=== PATIENT | male | born 1965 | race Caucasian/White ===

== ENCOUNTER → 2017-12-29 | Outpatient (CLI) | payer MEDICARE ==
--- NOTE | 2017-12-29 15:51 | Diagnostic Imaging Report ---
INDICATION: Left elbow pain. TIME OF EXAM: 02:42 p.m. Three views of left elbow are obtained. There is osseous density noted along the volar aspect of the elbow. This is adjacent to the olecranon on AP view. Findings are suggestive of an acute fracture, possibly arising from the coronoid process. Proximal radius is intact. Distal humerus is intact. IMPRESSION: Findings are suggestive of a fracture at the elbow, likely arising from the coronoid process. Dictated by: Dictated on workstation # [id number]
--- NOTE | 2017-12-29 15:54 | Diagnostic Imaging Report ---
INDICATION: Left arm pain. TIME OF EXAM: 2:45 PM FINDINGS: Two views of left forearm demonstrate an osseous density in the anterior elbow consistent with a fracture fragment. This likely arises from the coronoid process. Alignment at the elbow is normal. Alignment at the wrist is normal. No other abnormalities are seen. IMPRESSION: Elbow fracture, possibly arising from the coronoid process. Dictated by: Dictated on workstation # [id number]
== END ==
LOC: RAD 14:02
PROVIDERS: ATTEND Family Medicine
DX: S42.402A Unspecified fracture of lower end of left humerus, initial encounter for closed fracture (principal)
CPT/HCPCS: 73080; 73090

== ENCOUNTER → 2018-01-13 | Outpatient (CLI) | payer MEDICARE ==
--- NOTE | 2018-01-13 15:38 | Diagnostic Imaging Report ---
INDICATION: 52-year-old male with recent elbow fracture. COMPARISON: None. FINDINGS: AP Spine L1-L4: [BMD (g/cm2): 1.202] [T-Score: -0.3] [Z-Score: 0.1] [BMD Previous: N/A] [BMD % Change: N/A] LT Hip Neck: [BMD (g/cm2): 0.899] [T-Score: -1.3] [Z-Score: -0.5] LT Hip Total: [BMD (g/cm2):.893] [T-Score:-1.4] [Z-Score: -1.0] [BMD Previous: N/A] [BMD % Change: N/A] RT Hip Neck: [BMD (g/cm2):.850] [T-Score:-1.7] [Z-Score:-0.9] RT Hip Total: [BMD (g/cm2):0.891] [T-score:-1.5] [Z-Score:-1.0] [BMD Previous:N/A] [BMD % Change:N/A] *Indicates significant change from prior examination based on 95% confidence level. World Health Organization criteria for BMD interpretation classify patients as Normal (T-score at or above -1.0), Osteopenic (T-score between -1.0 and -2.5) or Osteoporotic (T-score at or below -2.5). LIMITATIONS AND MODIFICATION: None. FRACTURE RISK (FRAX SCORE): The ten year probability of (%): Major Osteoporotic Fracture: [9.4] Hip Fracture: [1.3] IMPRESSION: 1. Osteopenia (Low bone mass). 2. Baseline examination. 3. See below National Osteoporosis Foundation guidelines on when to potentially initiate pharmacologic therapy. Based on the National Osteoporosis Foundation Guidelines, pharmacologic treatment should be initiated in any of the following, unless clinical conditions suggest otherwise: * Any patient with prior fragility fracture of the hip or vertebrae. A spine fracture indicates 5X risk for subsequent spine fracture and 2X risk for subsequent hip fracture. * Osteoporosis (T-score <-2.5). * Postmenopausal women and men age 50 and older with low bone mass/osteopenia (T-score between -1.0 and -2.5) by DXA and 10-year major osteoporotic fracture greater than 20% or a 10-year probability of hip fracture greater than 3%. These fracture risks are supplied above in the FRAX score, if applicable. * Clinician judgement and/or patient preferences may indicate treatment for people with 10-year fracture probabilities above or below these levels. Dictated by: Dictated on workstation # [id number]
== END ==
LOC: RAD 10:44
PROVIDERS: ATTEND Family Medicine
DX: S42.409A Unspecified fracture of lower end of unspecified humerus, initial encounter for closed fracture (principal); M85.89 Other specified disorders of bone density and structure, multiple sites
CPT/HCPCS: 77080

== ENCOUNTER 2018-03-02 08:59 | Emergency (ER) | payer MEDICARE ==
[~2018-03-02] VITALS: Ht 157.5 cm; Wt 59.0 kg
--- NOTE | 2018-03-02 10:07 | Diagnostic Imaging Report ---
PROCEDURE: CT head and CT cervical spine without contrast. TECHNIQUE: Multiple contiguous axial images were obtained through the brain and cervical spine without the use of intravenous contrast. Sagittal and coronal reformations through the cervical spine were then performed. INDICATION: Fall. Head injury. COMPARISON: None. FINDINGS: CT HEAD: Moderate generalized cerebral and cerebellar parenchymal volume loss. No CT evidence for territorial infarction. No intracranial hemorrhage, mass effect, hydrocephalus, or extra-axial fluid collections. Osseous structures are intact. Moderate mucosal thickening in the ethmoid and right maxillary sinuses. The mastoids are clear. CT CERVICAL SPINE: Normal alignment. Vertebral body heights are preserved. No fractures. Moderate to advanced degenerative endplate changes at C5-C7. No evidence of high-grade spinal canal narrowing. There is moderate to advanced bilateral neuroforaminal narrowing at C5-C6 and C6-C7. The visualized paravertebral soft tissues are unremarkable. IMPRESSION: No acute intracranial or cervical spine CT findings. Dictated by: Dictated on workstation # [id number]
--- NOTE | 2018-03-02 10:33 | ED Fall/Injury ---
General Chief Complaint: Trauma-Non Activation Stated Complaint: FALL Nursing Triage Note: pt presents to ed via ems from [facility] [place] [facility] for fall this am while walking to breakfast. pt had a witnessed fall forward onto his face. pt has 1-1 1/2 cm lac to forehead. no loc. Source: patient Exam Limitations: physical impairment (ANGELINA ROBLERO MD) History of Present Illness Date Seen by Provider: Mar 02, 2018 Time Seen by Provider: 10:02 Initial Comments Here with report of fall while trying to walk to breakfast this morning. Witnessed fall due to losing his balance and fell forward and hit his face. No loss of consciousness. Return to walk afterwards. Patient has dementia and behavioral disorder and does not converse well but does follow some commands. Does have a 2 cm laceration to the forehead up above the nose. Bleeding controlled with dressing. No other injury noted or reported. [facility] Location Injury Occurred: home residence Occurred: this morning (approximately 45 minutes prior to arrival) Severity: moderate Injuries/Pain Location: head, face Context: lost balance Loss of Consciousness: no loss of consciousness Associated Symptoms (Fall): No Nausea/Vomiting (ANGELINA ROBLERO MD) Allergies and Home Medications Allergies Coded Allergies: No Known Drug Allergies (Unverified , 03/02/18) Home Medications Calcium Carbonate/Simethicone 1 Each Tab.chew, 1 TAB PO QID PRN for INDIGESTION, (Reported) Docusate Sodium 100 Mg Capsule, 100 MG PO DAILY, (Reported) Patient Home Medication List Home Medication List Reviewed: Yes (ANGELINA ROBLERO MD) Review of Systems Review of Systems Constitutional: see HPI; No chills, No fever Gastrointestinal: No diarrhea, No vomiting Skin: change in color, lesions Unable to complete review of systems due to her underlying dementia and medical condition (ANGELINA ROBLERO MD) Past Pishxjq-Hfrrmm-Vsffbq Hx Past Med/Social Hx: Reviewed Nursing Past Med/Soc Hx (ANGELINA ROBLERO MD) Patient Social History Alcohol Use: Denies Use Recreational Drug Use: No Smoking Status: Never a Smoker Recent Foreign Travel: No Contact w/Someone Who Travel: No Recent Infectious Disease Expo: No (ANGELINA ROBLERO MD) Past Medical History Cardiac: Yes High Cholesterol, Hypertension Neurological: Yes (anoxic brain damage) Dementia Genitourinary: No Gastrointestinal: Yes Chronic Constipation Musculoskeletal: Yes (lack of cordination) Endocrine: Yes Diabetes, Non-Insulin dep HEENT: Yes Dysphagia Cancer: No Psychosocial: Yes (behavioral disorders, ) Sleep Difficulties, Depression (ANGELINA ROBLERO MD) Family Medical History Reviewed Nursing Family Hx (ANGELINA ROBLERO MD) History per records as patient unable to give history. (ANGELINA ROBLERO MD) Physical Exam Vital Signs Vital Signs - First Documented 03/02/18 09:10 Temp 97.4 Pulse 71 Resp 16 B/P (MAP) 101/81 (88) Pulse Ox 91 (BARBARA MCCABE APRN) Vital Signs Capillary Refill : Less Than 3 Seconds (ANGELINA ROBLERO MD) Height, Weight, BMI Height: 5'2.00" Weight: 130lbs. oz. 58.039475dp; BMI Method:Estimated General Appearance: WD/WN, no apparent distress HEENT: PERRL/EOMI, TMs normal, pharynx normal Neck: full range of motion, supple Cardiovascular: regular rate, rhythm, no murmur Respiratory: lungs clear, normal breath sounds Gastrointestinal: non tender, soft Back: normal inspection, no CVA tenderness, no vertebral tenderness Extremities: normal range of motion, non-tender, normal inspection Neurologic/Psychiatric: alert, other (baseline mood and affect) Skin: warm/dry, other (2 centimeter laceration to the forehead centrally oblique over left eye and nose) (ANGELINA ROBLERO MD) Procedures/Interventions Wound Location: Face Wound Length (cm): 3.5 Wound's Depth, Shape: linear, sub Q Wound Explored: clean Irrigated w/ Saline (ccs): 20 Anesthesia: 1% Lidocaine Volume Anesthetic (ccs): 3 Suture: Prolene Suture Size: 5-0 Number of Sutures: 9 Layer Closure?: 1 Number Deep Layer Sutures: 0 Progress Area anesthetized with 3 mL of 1% lidocaine without epinephrine. Wound then scrubbed with clinically/saline solution. Wound then irrigated with 20 mL the same. There is a 3 cm laceration between the eyebrows and a 0.5 cm stellate laceration to the bridge of the nose. The 3 cm laceration was closed with 7 simple a ruptured sutures size 5-0 Prolene. The stellate laceration on the nose closed with 2 simple interrupted sutures size 5-0 Prolene. (BARBARA MCCABE APRN) Progress/Results/Core Measures Results/Orders Vital Signs/I&O 03/02/18 03/02/18 09:10 11:18 Temp 97.4 Pulse 71 65 Resp 16 18 B/P (MAP) 101/81 (88) 114/81 (92) Pulse Ox 91 94 (BARBARA MCCABE APRN) Blood Pressure Mean: 88 Progress Progress Note : Progress Note Seen and evaluated. CT head and neck ordered. Dressing applied to wound for bleeding control. Monitor patient. 1149: Wound repaired by Barbara Mccabe APRN. Discharged home with return precautions. Staff verbalize understanding of instructions and agreement with plan. (ANGELINA ROBLERO MD) Diagnostic Imaging Diagonstic Imaging: CT Plain Films/CT/US/NM/MRI: c-spine, head Comments [facility] [place] NAME: LAURITA ORTIZ [employer] REC#: [id number] PT STATUS: REG ER : 1965 PHYSICIAN: ANGELINA ROBLERO MD ADMIT DATE: 03/02/18/ER Draft Date of Exam:03/02/18 CT HEAD/CERVICAL SPINE WO PROCEDURE: CT head and CT cervical spine without contrast. TECHNIQUE: Multiple contiguous axial images were obtained through the brain and cervical spine without the use of intravenous contrast. Sagittal and coronal reformations through the cervical spine were then performed. INDICATION: Fall. Head injury. COMPARISON: None. FINDINGS: CT HEAD: Moderate generalized cerebral and cerebellar parenchymal volume loss. No CT evidence for territorial infarction. No intracranial hemorrhage, mass effect, hydrocephalus, or extra-axial fluid collections. Osseous structures are intact. Moderate mucosal thickening in the ethmoid and right maxillary sinuses. The mastoids are clear. CT CERVICAL SPINE: Normal alignment. Vertebral body heights are preserved. No fractures. Moderate to advanced degenerative endplate changes at C5-C7. No evidence of high-grade spinal canal narrowing. There is moderate to advanced bilateral neuroforaminal narrowing at C5-C6 and C6-C7. The visualized paravertebral soft tissues are unremarkable. IMPRESSION: No acute intracranial or cervical spine CT findings. Dictated on workstation # [id number] Dict: 03/02/18 1000 Trans: 03/02/18 1007 [id number] Interpreted by: ADRIA PULIDO MD Electronically signed by: (ANGELINA ROBLERO MD) Departure Impression Primary Impression: Forehead laceration Qualified Codes: S01.81XA - Laceration without foreign body of other part of head, initial encounter Additional Impression: Head injury Qualified Codes: S09.90XA - Unspecified injury of head, initial encounter Disposition: HOME, SELF-CARE Condition: Improved Departure-Patient Inst. Decision time for Depature: 11:50 (ANGELINA ROBLERO MD) Referrals: GONZALES YANG DO (PCP/Family) Primary Care Physician Patient Instructions: Laceration Repair With Stitches (DC), Minor Head Injury ( DC) Add. Discharge Instructions: All discharge instructions reviewed with patient and/or family. Voiced understanding. Sutures out in 7 days. Follow-up with your Dr. in a few days for recheck as needed. Return for worsening, fever, vomiting, weakness, breathing problems or other concerns as needed. You may cover wound with antibiotic ointment and dressing once or twice daily as needed. You can continue this for 3 or 4 days and then cover with dry dressing afterwards. ANGELINA ROBLERO MD Mar 02, 2018 10:33 BARBARA MCCABE APRN Mar 02, 2018 11:45
[2018-03-02] MEDS ORDERED: ATOR20TA49 PO (10:59)
[2018-03-02] MEDS ORDERED: CALC1TAB24 PO (10:59)
[2018-03-02] MEDS ORDERED: ESCI5TAB PO (10:59)
[2018-03-02] MEDS ORDERED: DONE23TA PO (10:59)
[2018-03-02] MEDS ORDERED: CALC-140 PO (10:59)
[2018-03-02] MEDS ORDERED: GUAI400T71 PO (10:59)
[2018-03-02] MEDS ORDERED: DOCU-143 PO (10:59)
[2018-03-02] MEDS ORDERED: ZOLP5TAB PO (10:59)
[2018-03-02 12:13] VITALS: BP 114/81
== END 2018-03-02 12:13 | disposition home or self-care (01) ==
LOC: EDUNIT# 08:59 → ER 09:00
DX: S09.90XA Unspecified injury of head, initial encounter (principal); S01.81XA Laceration without foreign body of other part of head, initial encounter; E78.00 Pure hypercholesterolemia, unspecified; I10 Essential (primary) hypertension; F03.90 Unspecified dementia, unspecified severity, without behavioral disturbance, psychotic disturbance, mood disturbance, and anxiety; F32.9 Major depressive disorder, single episode, unspecified; Z87.19 Personal history of other diseases of the digestive system; W01.198A Fall on same level from slipping, tripping and stumbling with subsequent striking against other object, initial encounter; Y92.009 Unspecified place in unspecified non-institutional (private) residence as the place of occurrence of the external cause
CPT/HCPCS: 12013; 70450; 72125

== ENCOUNTER 2018-10-06 19:08 | Inpatient (IN) | payer MEDICARE ==
[~2018-10-06] VITALS: Ht 182.9 cm; Wt 72.8 kg
[~2018-10-06 19:08] MED LIST: ATOR20TA49 PO; CALC-140 PO; CALC1TAB24 PO; DOCU-143 PO; DONE23TA PO; ESCI5TAB PO; GUAI400T71 PO; ZOLP5TAB PO
[2018-10-06 19:10] VITALS: BP 121/73
[2018-10-06] MEDS ORDERED: NS IV 1000 ML 1,000 ML IV SCH (19:17)
[2018-10-06] MEDS ORDERED: NS IV 500 ML 500 ML IV ONE (19:17)
--- NOTE | 2018-10-06 19:26 | ED General ---
General Stated Complaint: ALTERED MENTAL STATUS Source of Information: Patient, EMS, Long-Term Records Exam Limitations: Other (advanced Alzheimer's dementia) History of Present Illness Date Seen by Provider: Oct 06, 2018 Time Seen by Provider: 19:09 Initial Comments The patient arrives by EMS from [facility] with chief complaint that he knows he was having a difficult time breathing some coughing and a fever but no mention of antipyretics this afternoon. He spent most of the day lying in bed which was unusual for him. He is nonverbal at baseline. Has a history of dementia secondary to Alzheimer's and no history of diabetes. He had sugar was 232 per EMS when they arrived. He was 89% on room air so they got him up to 94% with 3 L of oxygen by nasal cannula. He is not oxygen dependent at baseline. No mention of history of COPD or asthma. Allergies and Home Medications Allergies Coded Allergies: No Known Drug Allergies (Unverified , 03/02/18) Home Medications Calcium Carbonate/Simethicone 1 Each Tab.chew, 1 TAB PO QID PRN for INDIGESTION, (Reported) Docusate Sodium 100 Mg Capsule, 100 MG PO DAILY, (Reported) Patient Home Medication List Home Medication List Reviewed: Yes Review of Systems Review of Systems Constitutional: No chills; fever, malaise EENTM: No ear discharge, No hearing loss, No ear pain Respiratory: cough, short of breath; No wheezing Cardiovascular: No chest pain, No Hx of Intervention, No palpitations Gastrointestinal: No abdominal pain, No constipation, No diarrhea Genitourinary: No discharge, No dysuria Musculoskeletal: No back pain, No joint pain Skin: pruritus, rash Past Ytpafry-Yqgwsq-Noxrhv Hx Patient Social History Alcohol Use: Denies Use Recreational Drug Use: No Recent Foreign Travel: No Contact w/Someone Who Travel: No Past Medical History Cardiac: Yes High Cholesterol, Hypertension Neurological: Yes (anoxic brain damage) Dementia Genitourinary: No Gastrointestinal: Yes Chronic Constipation Musculoskeletal: Yes (lack of cordination) Endocrine: Yes Diabetes, Non-Insulin dep HEENT: Yes Dysphagia Cancer: No Psychosocial: Yes (behavioral disorders, ) Sleep Difficulties, Depression Family Medical History History per records as patient unable to give history. Physical Exam-Suspected Sepsis Physical Exam Vital Signs Capillary Refill : Height, Weight, BMI Height: 5'2.00" Weight: 130lbs. oz. 58.079312gq; BMI Method:Estimated General Appearance: No Apparent Distress, WD/WN Eyes: Bilateral Eye Normal Inspection, Bilateral Eye PERRL, Bilateral Eye EOMI HEENT: PERRL/EOMI, TMs Normal, Pharynx Normal; No Moist Mucous Membranes Neck: Full Range of Motion, Normal Inspection Respiratory: No Accessory Muscle Use, Respiratory Distress (mild with respiratory rate in the mid 20s and hypoxia on room air), Rhonci (right big) Cardiovascular: Regular Rate, Rhythm, No Edema, Normal Peripheral Pulses Gastrointestinal: Normal Bowel Sounds, Non Tender, Soft Back: Normal Inspection, No Vertebral Tenderness Extremity: Normal Capillary Refill, Normal Inspection, No Pedal Edema Neurologic/Psychiatric: Alert, Normal Mood/Affect (cooperative), Other ( nonverbal) Skin: rash (erythematous papules that are pruritic and consistent with scabies) Focused Exam Sepsis Stage: Sepsis Possible Source: Pulmonary Lactate Level 10/06/18 19:16: Lactic Acid Level 1.68 Time of Focused Exam: 20:12 Respiratory: No Accessory Muscle Use, Respiratory Distress (respiratory rate in the low 20s and oxygen saturation 90% on room air before mid to upper 90s on 3 L.), Rhonci Cardiovascular: Regular Rate, Rhythm (120), No Edema, No JVD, Normal Peripheral Pulses Capillary Refill: Less Than 3 Seconds Peripheral Pulses: 2+ Dorsalis Pedis (R), 2+ Left Dors-Pedis (L) Skin: normal color, rash Lactic Acid Level Laboratory Tests Test 10/06/18 19:16 Lactic Acid Level 1.68 MMOL/L (0.50-2.00) Within 3hrs of presentation: Admin fluids, Admin ABX, Blood cultures prior to ABX's, Focus exam, Lactate level Procedures/Interventions Suture Size: 5-0 Progress/Results/Core Measures Suspected Sepsis SIRS Temperature: Pulse: Respiratory Rate: Laboratory Tests 10/06/18 19:16: White Blood Count 16.3H Blood Pressure / Mean: 10/06/18 19:16: Lactic Acid Level 1.68 Laboratory Tests 10/06/18 19:16: Creatinine 1.02, INR Comment 1.1, Platelet Count 143, Total Bilirubin 1.0 Results/Orders Lab Results Laboratory Tests Test 10/06/18 19:16 10/06/18 19:55 Range/Units White Blood Count 16.3 H 4.3-11.0 10^3/uL Red Blood Count 4.92 4.35-5.85 10^6/uL Hemoglobin 14.8 13.3-17.7 G/DL Hematocrit 46 40-54 % Mean Corpuscular Volume 93 80-99 FL Mean Corpuscular Hemoglobin 30 25-34 PG Mean Corpuscular Hemoglobin Concent 32 32-36 G/DL Red Cell Distribution Width 14.3 10.0-14.5 % Platelet Count 143 130-400 10^3/uL Mean Platelet Volume 10.9 H 7.4-10.4 FL Neutrophils (%) (Auto) 78 H 42-75 % Lymphocytes (%) (Auto) 9 L 12-44 % Monocytes (%) (Auto) 13 H 0-12 % Eosinophils (%) (Auto) 0 0-10 % Basophils (%) (Auto) 0 0-10 % Neutrophils # (Auto) 12.7 H 1.8-7.8 X 10^3 Lymphocytes # (Auto) 1.4 1.0-4.0 X 10^3 Monocytes # (Auto) 2.2 H 0.0-1.0 X 10^3 Eosinophils # (Auto) 0.0 0.0-0.3 10^3/uL Basophils # (Auto) 0.0 0.0-0.1 10^3/uL Neutrophils % (Manual) 6 % Lymphocytes % (Manual) 17 % Band Neutrophils 7 % Blood Morphology Comment NORMAL Prothrombin Time 14.7 12.2-14.7 SEC INR Comment 1.1 0.8-1.4 Activated Partial Thromboplast Time 30 24-35 SEC Sodium Level 137 135-145 MMOL/L Potassium Level 3.9 3.6-5.0 MMOL/L Chloride Level 102 98-107 MMOL/L Carbon Dioxide Level 23 21-32 MMOL/L Anion Gap 12 5-14 MMOL/L Blood Urea Nitrogen 15 7-18 MG/DL Creatinine 1.02 0.60-1.30 MG/DL Estimat Glomerular Filtration Rate > 60 BUN/Creatinine Ratio 15 Glucose Level 265 H 70-105 MG/DL Lactic Acid Level 1.68 0.50-2.00 MMOL/L Calcium Level 9.2 8.5-10.1 MG/DL Corrected Calcium 9.3 8.5-10.1 MG/DL Total Bilirubin 1.0 0.1-1.0 MG/DL Aspartate Amino Transf (AST/SGOT) 10 5-34 U/L Alanine Aminotransferase (ALT/SGPT) 13 0-55 U/L Alkaline Phosphatase 113 40-136 U/L Total Protein 7.1 6.4-8.2 GM/DL Albumin 3.9 3.2-4.5 GM/DL Smear Scan 70 My Orders Orders - ROSCOE HUBER J Cbc With Automated Diff (10/06/18:) Comprehensive Metabolic Panel (10/06/18:) Blood Culture (10/06/18:) Sputum Culture (10/06/18:) Urinalysis (10/06/18) Urine Culture (10/06/18) Protime With Inr (10/06/18:) Partial Thromboplastin Time (10/06/18:) Chest 1 View, Ap/Pa Only (10/06/18:) Acetaminophen Tablet (Tylenol Tablet) (10/06/18:30) Ed Iv/Invasive Line Start (10/06/18:17) Ed Iv/Invasive Line Start (10/06/18:17) Vital Signs Adult Sepsis Patie Q15M (10/06/18:17) O2 (10/06/18:) Remove Rings In Anticipation O (10/06/18:17) Lactic Acid Analyzer (10/06/18:17) Ns Iv 1000 Ml (Sodium Chloride 0.9%) (10/06/18:) Cefepime Injection (Maxipime Injection) (10/06/18:30) Ed Iv/Invasive Line Start (10/06/18:) Ns Iv 500 Ml (Sodium Chloride 0.9%) (10/06/18:17) Albuterol/Ipra Inhalation Soln (Duoneb I (10/06/18:30) Svn Small Volume Nebulizer (10/06/18:17) Manual Differential (10/06/18 19:16) Arterial Blood Gas (10/06/18 19:53) Medications Given in ED Current Medications Medications Dose Ordered Sig/Willie Route Start Time Stop Time Status Last Admin Dose Admin Acetaminophen 1,000 mg ONCE PRN PO 10/06/18 19:30 10/06/18 19:33 DC 10/06/18 19:32 1,000 MG Cefepime HCl 1000 mg/Sterile Water 10 ml @ 200 mls/hr ONCE ONCE IV 10/06/18 19:30 10/06/18 19:32 DC 10/06/18 19:57 200 MLS/HR Sodium Chloride 500 ml @ 0 mls/hr Q0M ONCE IV 10/06/18 19:17 10/06/18 19:22 DC 10/06/18 19:32 0 MLS/HR Vital Signs/I&O Capillary Refill : Progress Note : Time: 19:24 Progress Note ABG, oxygen at 2 L and the patient stays in the mid 90s on his oxygen sats, septic workup to include a 1500 mL bolus which is more than 20 cc/kg. He is tachycardic with a fever 102.1 so we'll give him Tylenol and obtain chest x-ray. He has some right lung rhonchi so we will try a breathing treatment. Diagnostic Imaging Diagonstic Imaging: Xray Plain Films/CT/US/NM/MRI: chest (1v) Comments NAME: LAURITA ORTIZ [facility] REC#: [id number] PT STATUS: REG ER : 1965 PHYSICIAN: ROSCOE HUBER MD ADMIT DATE: 10/06/18/ER Draft Date of Exam:10/06/18 CHEST 1 VIEW, AP/PA ONLY EXAMINATION: Portable erect AP chest at 07:46 p.m. INDICATION: Fever. FINDINGS: There are no prior studies available for comparison. This exam is less than optimal as the study is taken in shallow inspiration. Allowing for this technical factor, the heart size is within normal limits. There is bibasilar pneumonia/atelectasis. There may also be a small amount of fluid in the right lung base. The upper lungs are generally clear. The mediastinum is not widened. The osseous structures are intact. IMPRESSION: There is bibasilar pneumonia/atelectasis and a small right pleural effusion. A follow-up exam will be recommended for further evaluation. Dictated on workstation # [id number] Dict: 10/06/181953 Trans: 10/06/181957 [id number] Interpreted by: MOISES GONCALVES MD Electronically signed by: Reviewed: Reviewed by Me Departure Communication (Admissions) Time/Spoke to Admitting Phy: 20:[address] Reza [place] who is covering for Dr. Yang and he agrees to admit the patient and return patient to Dr. Yang in the morning. Impression Primary Impression: Pneumonia Qualified Codes: J18.1 - Lobar pneumonia, unspecified organism Additional Impressions: Sepsis Qualified Codes: A41.9 - Sepsis, unspecified organism Scabies Acute respiratory distress Hypoxia Disposition: ADMITTED INPATIENT Condition: Stable Admissions Decision to Admit Reason: Admit from ER (General) Decision to Admit/Date: Oct 06, 2018 Time/Decision to Admit Time: 19:25 Departure-Patient Inst. Referrals: GONZALES YANG DO (PCP/Family) Primary Care Physician ROSCOE HUBER Oct 06, 2018 19:26
[2018-10-06] MEDS ORDERED: CEFEPIME INJECTION 1,000 MG in WATER (STERILE) FOR INJECTION 10 ML IV ONE (19:30)
[2018-10-06] MEDS ORDERED: RT-ALBUTEROL/IPRATROPIUM 3 ML (DUONEB) VIAL INH ONE (19:30)
[2018-10-06] MEDS ORDERED: ACETAMINOPHEN 500 MG TAB (TYLENOL) PO PRN ×2 (19:30→21:45)
[2018-10-06 19:32] LABS: BASOPHILS % (AUTO) 0 % (0-10); EOSINOPHILS % (AUTO) 0 % (0-10); HEMATOCRIT 46 % (40-54); HEMOGLOBIN 14.8 G/DL (13.3-17.7); LYMPHOCYTES # (AUTO) 1.4 X 10^3 (1.0-4.0); LYMPHOCYTES % (AUTO) 9 % (12-44); MEAN CORPUSCULAR HEMOGLOBIN 30 PG (25-34); MEAN CORPUSCULAR HGB CONC 32 G/DL (32-36); MEAN CORPUSCULAR VOLUME 93 FL (80-99); MEAN PLATELET VOLUME 10.9 FL (7.4-10.4); MONOCYTES # (AUTO) 2.2 X 10^3 (0.0-1.0); MONOCYTES % (AUTO) 13 % (0-12); NEUTROPHILS # (AUTO) 12.7 X 10^3 (1.8-7.8); NEUTROPHILS % (AUTO) 78 % (42-75); PLATELET COUNT 143 10^3/uL (130-400); RED CELL DISTRIBUTION WIDTH 14.3 % (10.0-14.5); WHITE BLOOD COUNT 16.3 10^3/uL (4.3-11.0)
[2018-10-06 19:40] LABS: INR 1.1 (0.8-1.4); PROTHROMBIN TIME PATIENT 14.7 SEC (12.2-14.7)
[2018-10-06 19:46] LABS: ALANINE AMINOTRANSFERASE 13 U/L (0-55); ALBUMIN 3.9 GM/DL (3.2-4.5); ALKALINE PHOSPHATASE 113 U/L (40-136); BUN/CREATININE RATIO 15; CALCIUM 9.2 MG/DL (8.5-10.1); CARBON DIOXIDE 23 MMOL/L (21-32); CHLORIDE 102 MMOL/L (98-107); CREATININE SERUM 1.02 MG/DL (0.60-1.30); GFR ESTIMATED > 60; GLUCOSE 265 MG/DL (70-105); POTASSIUM 3.9 MMOL/L (3.6-5.0); SODIUM 137 MMOL/L (135-145); TOTAL PROTEIN 7.1 GM/DL (6.4-8.2)
[2018-10-06 19:55] LABS: BAND NEUTROPHILS 7 %; LYMPHOCYTES % (MANUAL) 17 %; NEUTROPHILS % (MANUAL) 6 %; RBC MORPH NORMAL; SMEAR SCAN COMMENT 70
--- NOTE | 2018-10-06 19:59 | Diagnostic Imaging Report ---
EXAMINATION: Portable erect AP chest at 07:46 p.m. INDICATION: Fever. FINDINGS: There are no prior studies available for comparison. This exam is less than optimal as the study is taken in shallow inspiration. Allowing for this technical factor, the heart size is within normal limits. There is bibasilar pneumonia/atelectasis. There may also be a small amount of fluid in the right lung base. The upper lungs are generally clear. The mediastinum is not widened. The osseous structures are intact. IMPRESSION: There is bibasilar pneumonia/atelectasis and a small right pleural effusion. A follow-up exam will be recommended for further evaluation. Dictated by: Dictated on workstation # [id number]
[2018-10-06 20:03] LABS: ABG OXYGEN SATURATION 96 % (94-100); ABG PCO2 34 MMHG (35-45); ABG PH 7.42 (7.37-7.43); ABG PO2 94 MMHG (79-93); ABG TCO2 22.3 MMOL/L (21.0-31.0)
--- NOTE | 2018-10-06 20:04 | NUR ---
ABG OBTAINED BY THIS RT AT 1954, PT HAD 2LPM NC RUNNING AND OUT OF NOSE WHEN RT ENTERS ROOM, ABG LABELED ROOM AIR D/T UNKNOWN TIME OF O2 OUT OF PT NOSE.
[2018-10-06 20:05] LABS: ALLENS TEST YES-POS; INSPIRED O2 ROOM AIR; PATIENT TEMP 102.1; VENTILATOR NO
[2018-10-06 20:12] LABS: BILIRUBIN,URINE NEGATIVE (NEGATIVE); CLARITY,URINE CLEAR; COLOR,URINE AMBER; GLUCOSE, URINE (UA) 4+ (NEGATIVE); KETONES,URINE 2+ (NEGATIVE); LEUKOCYTE ESTERASE ,URINE NEGATIVE (NEGATIVE); NITRITE,URINE NEGATIVE (NEGATIVE); PH,URINE 5 (5-9); PROTEIN,URINE 3+ (NEGATIVE); UROBILINOGEN,URINE 1 MG/DL (NORMAL)
[2018-10-06 20:37] LABS: BACTERIA,URINE MODERATE /HPF; WBC,URINE 0-2 /HPF
--- NOTE | 2018-10-06 20:45 | NUR ---
"David Ortiz admitted to room 413-1, with an admitting diagnosis of PNA| HYPOXIA | RESP. DISTRESS|SEPSIS|SCABIES , on 10/06/18 from ED via [facility], accompanied by STAFF .DAVID ORTIZ introduced to surroundings, call light, bed controls, phone, TV, temperature control, lights, meal times, smoking policy, visitor policy, side rail policy, bathrooms and showers. Patient Rights given to patient in the handbook.DAVID ORTIZ verbalizes understanding that [facility] is not responsible for the loss or damage to any personal effects or valuables that are kept in the patients posession during their hospitalization."
[2018-10-06 21:03] VITALS: BP 89/55
[2018-10-06] MEDS ORDERED: ANTACID SUSP 30 ML UDC (MYLANTA) PO PRN (21:45)
[2018-10-06] MEDS ORDERED: KETOROLAC 15 MG/ML VIAL IVP PRN (21:45)
[2018-10-06] MEDS ORDERED: PERMETHRIN (ELIMITE) 5% CR 60 GM TUBE TOP ONE (21:45)
[2018-10-06] MEDS ORDERED: ONDANSETRON 4 MG/2 ML (SDV) Z0FRAN IV PRN (21:45)
[2018-10-06] MEDS: NS IV 1000 ML 1,000 ML IV SCH (21:50)
[2018-10-06] MEDS ORDERED: NOREPINEPHRINE 4 MG in NS (IVPB) 250 ML IV SCH (21:50)
[2018-10-06] MEDS: LACTATED RINGERS 1,000 ML IV SCH (21:58)
[2018-10-06] MEDS ORDERED: NS IV ONE (22:00)
[2018-10-07] VITALS: BP 134/73
[2018-10-07] MEDS ORDERED: RT-ALBUTEROL/IPRATROPIUM 3 ML (DUONEB) VIAL INH PRN (00:30)
[2018-10-07] MEDS: NS IV 1000 ML 1,000 ML IV SCH ×4 (01:50→08:14)
[2018-10-07 04:00] VITALS: BP 117/57
[2018-10-07] MEDS: RT-ALBUTEROL/IPRATROPIUM 3 ML (DUONEB) VIAL INH SCH ×4 (06:35→20:51)
--- NOTE | 2018-10-07 06:45 | NUR ---
O2 ON RA WAS 87% AND ON 2 L NC 92%
[2018-10-07 06:51] LABS: BASOPHILS % (AUTO) 0 % (0-10); EOSINOPHILS % (AUTO) 0 % (0-10); HEMATOCRIT 40 % (40-54); HEMOGLOBIN 12.7 G/DL (13.3-17.7); LYMPHOCYTES # (AUTO) 1.1 X 10^3 (1.0-4.0); LYMPHOCYTES % (AUTO) 8 % (12-44); MEAN CORPUSCULAR HEMOGLOBIN 30 PG (25-34); MEAN CORPUSCULAR HGB CONC 32 G/DL (32-36); MEAN CORPUSCULAR VOLUME 94 FL (80-99); MEAN PLATELET VOLUME 10.8 FL (7.4-10.4); MONOCYTES # (AUTO) 2.3 X 10^3 (0.0-1.0); MONOCYTES % (AUTO) 16 % (0-12); NEUTROPHILS # (AUTO) 10.9 X 10^3 (1.8-7.8); NEUTROPHILS % (AUTO) 77 % (42-75); PLATELET COUNT 138 10^3/uL (130-400); RED CELL DISTRIBUTION WIDTH 14.4 % (10.0-14.5); WHITE BLOOD COUNT 14.3 10^3/uL (4.3-11.0)
[2018-10-07 07:07] LABS: ALANINE AMINOTRANSFERASE 11 U/L (0-55); ALBUMIN 3.3 GM/DL (3.2-4.5); ALKALINE PHOSPHATASE 87 U/L (40-136); BUN/CREATININE RATIO 14; CALCIUM 8.4 MG/DL (8.5-10.1); CARBON DIOXIDE 25 MMOL/L (21-32); CHLORIDE 107 MMOL/L (98-107); CREATININE SERUM 0.78 MG/DL (0.60-1.30); GFR ESTIMATED > 60; GLUCOSE 113 MG/DL (70-105); POTASSIUM 3.5 MMOL/L (3.6-5.0); SODIUM 141 MMOL/L (135-145)
[2018-10-07] MEDS ORDERED: diphenhydrAMINE 25 MG TAB (BENADRYL) PO ONE (07:33)
[2018-10-07] MEDS: LACTATED RINGERS 1,000 ML IV SCH (07:40)
[2018-10-07] MEDS ORDERED: diphenhydrAMINE 25 MG TAB (BENADRYL) PO PRN (07:45)
--- NOTE | 2018-10-07 07:53 | History & Physicial ---
History of Present Illness History of Present Illness Reason for visit/HPI Stent of a retirement. Patient running a temperature. Patient have difficulty in breathing coughing and fever area Patient spent the day in bed is unusual for him. Patient has dementia and not communicating. Patient brought to the emergency room. Chest x-ray shows pneumonia. Patient has UTI. Patient febrile. Patient has leukocytosis. Patient admitted Date of Admission Oct 06, 2018 at 20:15 Time Seen by a Provider: 07:47 I consulted on this patient on 10/07/18 07:40 Attending Physician iJm Yang DO Admitting Physician Jim Yang DO Consult Allergies and Home Medications Allergies Coded Allergies: No Known Drug Allergies (Unverified , 03/02/18) Home Medications Calcium Carbonate/Simethicone 1 Each Tab.chew, 1 TAB PO QID PRN for INDIGESTION, (Reported) Docusate Sodium 100 Mg Capsule, 100 MG PO DAILY, (Reported) Patient Home Medication List Home Medication List Reviewed: No Past Revwaor-Tdcfsi-Thusbz Hx Patient Social History Employed/Student: retired Alcohol Use: Denies Use Recreational Drug Use: No 2nd Hand Smoke Exposure: No Physical Abuse Screen: No Sexual Abuse: No Recent Foreign Travel: No Contact w/other who traveled: No Recent Hopitalizations: No Recent Infectious Disease Expo: No Immunizations Up To Date Date of Pneumonia Vaccine: Apr 22, 2017 Seasonal Allergies Seasonal Allergies: No Respiratory Pneumonia Cardiovascular Yes High Cholesterol, Hypertension Neurological Yes (anoxic brain damage) Dementia Genitourinary No Gastrointestinal Yes Chronic Constipation Musculoskeletal Yes (lack of cordination) Endocrine History of Endocrine Disorders: Yes Endocrine Disorders: Diabetes, Non-Insulin dep HEENT History of HEENT Disorders: Yes HEENT Disorders: Dysphagia Cancer No Psychosocial History of Psychiatric Problem: Yes (behavioral disorders, ) Behavioral Health Disorders: Sleep Difficulties, Depression Integumentary History of Skin or Integumenta: Yes (multiple "all over" rash noted to skin) Skin/Integumentary Disorders: Recent Skin Changes Family Medical History Other Significan Family Hx: History per records as patient unable to give history. Review of Systems Constitutional: fever, weakness EENTM: no symptoms reported Respiratory: short of breath Cardiovascular: no symptoms reported Gastrointestinal: no symptoms reported Genitourinary: no symptoms reported Physical Exam Vital Signs Vital Signs - First Documented 10/07/18 00:15 FiO2 28 Capillary Refill : Less Than 3 Seconds Height, Weight, BMI Height: 6'0.00" Weight: 160lbs. 6.4oz. [id number]; 21.8 BMI Method:Estimated General Appearance: No Apparent Distress, WD/WN, Other (Rash over body) Eyes: Bilateral Eye Normal Inspection HEENT: Normal ENT Inspection Neck: Normal Inspection Respiratory: No Accessory Muscle Use, No Respiratory Distress Cardiovascular: Regular Rate, Rhythm, No Murmur Gastrointestinal: Non Tender, Soft Assessment/Plan Assessment and Plan Pneumonia. Hypoxic. UTI. Dementia. Febrile. Hypoxic. Hypertension. Hyperlipidemia Admission Diagnosis Admission Status: Inpatient Order (span 2 midnights) Reason for Inpatient Admission: Pneumonia. UTI. Dementia. Lethargic Clinical Quality Measures DVT/VTE Risk/Contraindication: Risk Factor Score Per Nursin RFS Level Per Nursing on Admit: 4+=Very High JIM YANG DO Oct 07, 2018 07:53
[2018-10-07 08:00] VITALS: BP 93/68
[2018-10-07] MEDS: LORATADINE (CLARITIN) 10 MG TAB PO SCH (08:15)
[2018-10-07] MEDS: ENOXAPARIN 40 MG/0.4 ML (LOVENOX) SYR SC SCH (08:15)
--- NOTE | 2018-10-07 10:01 | Physician Query Clarification ---
PQ-Conflicting Diagnosis Admission/Discharge Admission Date: Oct 06, 2018 at 20:15 Discharge Date: The medical record reflects the following clinical scenario: History/Risk Factors: Pneumonia UTI Clinical Findings: T 102.1, Pulse 123, Resp 24, BP 121/73, WBC 16.3, Bands 7, Lactic acid 1.68 Treatment: IV Cefepime HCL. Question: Do you agree with the impression of Sepsis per Dr. Deandre Glynn? Please document a response in Progress Note or Discharge Summary. 1. Yes 2. No 3. Other, with explanation of clinical findings 4. Clinically undetermined, no explanation for clinical findings. PHYSICIAN RESPONSE Do you agree w/Consulting Dx?: Yes Please remember a lack of response to the above will prompt a phone page by CDI/Coding staff. In responding to this query, please exercise your independent professional judgment. The purpose of this communication is to more accurately reflect the complexity of your patients condition. The fact that a question is asked does not imply that any particular answer is desired or expected. Thank you for your timely response to this clarification. Requestors name: Divina Yi [facility] Phone #ext [phone] or [phone] THIS PHYSICIAN QUERY FORM IS A PERMANENT PART OF THE MEDICAL RECORD DIVINA YI Oct 07, 2018 10:01 GONZALES YANG DO Oct 07, 2018 10:21
[2018-10-07] MEDS ORDERED: HYDR28.3 TP (10:11)
[2018-10-07] MEDS ORDERED: MAGN400O7 PO (10:11)
[2018-10-07] MEDS ORDERED: GUAI5SYR PO (10:11)
[2018-10-07] MEDS ORDERED: CETI10TA20 PO (10:11)
[2018-10-07] MEDS ORDERED: LANO454C3 TP (10:11)
[2018-10-07] MEDS ORDERED: ESCI5TAB12 PO (10:11)
[2018-10-07] MEDS ORDERED: CALC1TAB94 PO (10:11)
[2018-10-07] MEDS ORDERED: MUPI22OI2 TP (10:11)
[2018-10-07] MEDS ORDERED: MEMA28CA5 PO (10:11)
[2018-10-07] MEDS ORDERED: DONE10TA41 PO (10:11)
[2018-10-07] MEDS ORDERED: TR1C15 TOP (10:11)
[2018-10-07] MEDS ORDERED: POTA20LI3 PO (10:11)
[2018-10-07] MEDS ORDERED: ACET325T38 PO (10:11)
[2018-10-07] MEDS ORDERED: ZOLP5TAB7 PO (10:11)
[2018-10-07] MEDS ORDERED: MULT1TAB69 PO (10:11)
[2018-10-07] MEDS ORDERED: ATOR20TA66 PO (10:11)
[2018-10-07] MEDS ORDERED: MAG355OR16 PO (10:11)
--- NOTE | 2018-10-07 10:13 | NUR ---
UPDATED MED REC WITH ORDER SUMMARY REPORT FROM [facility].
[2018-10-07] MEDS: CEFEPIME INJECTION 2,000 MG in WATER (STERILE) FOR INJECTION 20 ML IV SCH ×2 (10:53→21:31)
[2018-10-07 12:00] VITALS: BP 119/63
[2018-10-07] MEDS ORDERED: MILK OF MAGNESIA 400 MG/5 ML 30 ML UDC PO PRN (14:45)
[2018-10-07] MEDS ORDERED: NON-FORMULARY MEDICATION 1 EA EA (Mag Hydrox/Aluminum Hyd/Simeth (Maalox Advanced Suspensi PO PRN (14:45)
--- NOTE | 2018-10-07 15:08 | Physical Therapy Evaluation ---
"PT Evaluation-General Medical Diagnosis Admission Date Oct 06, 2018 at 20:15 Medical Diagnosis: PNA| HYPOXIA | RESP. DISTRESS|SEPSIS Onset Date: Oct 06, 2018 Therapy Diagnosis Therapy Diagnosis: impaired mobility, balance Height/Weight Height (Feet): 6 Height (Inches): 0.00 Weight (Pounds): 160 Weight (Ounces): 6.4 Precautions Precautions/Isolations: Fall Prevention, Standard Precautions Weight Bear Status Right Lower Extremity: Right Full Weight Bearing Left Lower Extremity: Left Full Weight Bearing patient ambulates Referral Physician: Jim Morse DO Reason for Referral: Evaluation/Treatment Medical History Additional Medical History Past Medical History Cardiac: Yes High Cholesterol, Hypertension Neurological: Yes (anoxic brain damage) Dementia Genitourinary: No Gastrointestinal: Yes Chronic Constipation Musculoskeletal: Yes (lack of cordination) Endocrine: Yes Diabetes, Non-Insulin dep HEENT: Yes Dysphagia Cancer: No Psychosocial: Yes (behavioral disorders, ) Sleep Difficulties, Depression Social History Home: Custodial Prior/Core FIM Prior Level of Function Therapy Code Descriptions/Definitions Functional [place] Measure: 0=Not Assessed/NA 4=Minimal Assistance 1=Total Assistance 5=Supervision or Setup 2=Maximal Assistance 6=Modified [place] 3=Moderate Assistance 7=Complete [place] Therapy Quality Codes: 6 Independent with activity with or without an assistive device 5 Patient requires set up or clean up by helper. Patient completes activity by themselves 4 Supervision or touching assist (CGA). [place] provide cues , steadying assist 3 The helper provides less than half the effort to complete the activity 2 The helper provides more than half the effort to complete the activity 1 Dependent. The helper does all the effort to complete an activity 7 Patient refused to complete or attempt activity 9 The patient did not perform the activity before the current illness or injury 88 Not attempted due to Medical conditions or safety concerns Functional Abilities and Goals: Independent: Patient completed the activities by him/herself, with or without an assistive device, with no assistance from a helper. Needed Some Help: Patient needed partial assistance from another person to complete activities. Dependent: A helper completed the activities for the patient. Unknown: Not Applicable: Bed Mobility: 7 Transfers (B,C,W/C) (FIM): 6 Gait: 6 Indoor Mobility (Ambulation): Independent Patient apparently ambulates at the prison on his own, holding onto the w all and furniture, and is unsteady. PT Evaluation-Current Subjective Patient in bed pre tx, non-verbal, participates in getting out of bed and ambulating but is wildly impulsive with no thought of safety. Pt/Family Goals none stated Objective Patient Orientation: Unable to Assess Attachments: IV ROM/Strength ROM Lower Extremities WNL Transfers Therapy Code Descriptions/Definitions Functional [place] Measure: 0=Not Assessed/NA 4=Minimal Assistance 1=Total Assistance 5=Supervision or Setup 2=Maximal Assistance 6=Modified [place] 3=Moderate Assistance 7=Complete [place] Transfers (B, C, W/C) (FIM): 4 Scootin Rollin Supine to/from Sit: 6 Sit to/from Stand: 4 Gait Mode of Locomotion: Walk Anticipated Mode of Locomotion: Walk Gait (FIM): 4 Distance: 50' Gait Level of Assist: 4 Gait Persons Needed: 1 Gait Assistive Device: None Comments/Gait Description Patient ambulates with CGA/[place] for balance, unsteady, impulsive, seems to respond some to verbal and tactile cues but not much. Balance Sitting Static: Fair Sitting Dynamic: Fair Standing Static: Poor Standing Dynamic: Poor Assessment/Needs Patient is impulsive, has poor safety awareness, does not follow directions. High fall risk. Patient in recliner post tx with nurse call, phone, tray, chair alarm on, nurse notified patient is in chair. Rehab Potential: Poor PT Short Term Goals Short Term Goals Time Frame: Oct 14, 2018 Transfers (B,C,W/C) (FIM): 5 Gait (FIM): 5 Gait Distance Comment: 150' Gait Level of Assist: 5 Gait Assistive Device: None PT Plan Problem List Problem List: Activity Tolerance, Functional Strength, Safety, Balance, Gait, Transfer, Bed Mobility Treatment/Plan Treatment Plan: Continue Plan of Care Treatment Plan: Bed Mobility, Education, Functional Activity [place], Functional Strength, Gait, Safety, Therapeutic Exercise, Transfers Treatment Duration: Oct 14, 2018 Frequency: 6 times per week Estimated Hrs Per Day: .25 hour per day Patient and/or Family Agrees t: Yes Safety Risks/Education Patient Education: Gait Training, Transfer Techniques, Correct Positioning, Safety Issues Teaching Recipient: Patient Teaching Methods: Demonstration, Discussion Response to Teaching: Reinforcement Needed Discharge Recommendations Plan Patient will perform bed mobility and transfer training, ambulation, as much as patient will participate. Therapy D/C Recommendations: Residential (TCU/NH) Time/GCodes Time In: 1440 Time Out: 1450 Total Billed Treatment Time: 10 Total Billed Treatment 1 visit NEIL RM PT Oct 07, 2018 15:08"
--- NOTE | 2018-10-07 15:13 | Occupational Therapy Eval ---
OT Evaluation-General/PLF Medical Diagnosis Admission Date Oct 06, 2018 at 20:15 Medical Diagnosis: PNA| HYPOXIA | RESP. DISTRESS|SEPSIS Onset Date: Oct 07, 2018 Therapy Diagnosis Therapy Diagnosis: impaired ADLs and mobility Height/Weight Height (Feet): 6 Height (Inches): 0.00 Weight (Pounds): 160 Weight (Ounces): 6.4 Precautions Precautions/Isolations: Contact Isolation, Fall Prevention Safety Interventions: Bed Exit Alarm, Reorient-PRN Weight Bear Status Weight Bearing Restriction: Weight Bearing/Tolerated Referral Referral Reason: Evaluation/Treatment Medical History Additional Medical History Cardiac: Yes High Cholesterol, Hypertension Neurological: Yes (anoxic brain damage) Dementia Genitourinary: No Gastrointestinal: Yes Chronic Constipation Musculoskeletal: Yes (lack of cordination) Endocrine: Yes Diabetes, Non-Insulin dep HEENT: Yes Dysphagia Cancer: No Psychosocial: Yes (behavioral disorders, ) Sleep Difficulties, Depression Current History per h&P: "Stent of a longterm. Patient running a temperature. Patient have difficulty in breathing coughing and fever area Patient spent the day in bed is unusual for him. Patient has dementia and not communicating. Patient brought to the emergency room. Chest x-ray shows pneumonia. Patient has UTI. Patient febrile. Patient has leukocytosis. Patient admitted" Reviewed History: Yes Social History Home: [facility] ADL-Prior Level of Function Therapy Code Descriptions/Definitions Functional [place] Measure: 0=Not Assessed/NA 4=Minimal Assistance 1=Total Assistance 5=Supervision or Setup 2=Maximal Assistance 6=Modified [place] 3=Moderate Assistance 7=Complete [place] Therapy Quality Codes: 6 Independent with activity with or without an assistive device 5 Patient requires set up or clean up by helper. Patient completes activity by themselves 4 Supervision or touching assist (CGA). [place] provide cues , steadying assi st 3 The helper provides less than half the effort to complete the activity 2 The helper provides more than half the effort to complete the activity 1 Dependent. The helper does all the effort to complete an activity 7 Patient refused to complete or attempt activity 9 The patient did not perform the activity before the current illness or injury 88 Not attempted due to Medical conditions or safety concerns Functional Abilities and Goals: Independent: Patient completed the activities by him/herself, with or without an assistive device, with no assistance from a helper. Needed Some Help: Patient needed partial assistance from another person to complete activities. Dependent: A helper completed the activities for the patient. Unknown: Not Applicable: ADL PLOF Comments per NSG at [facility] home. pt was indep with mobility using no AD with some unsteadiness. pt was setup for eating and otherwise dependent for all other ADLs. Self Care: Dependent Functional Cognition: Dependent Drive Self: No OT Current Status Subjective pt laying in bed upon OT arrival. pt mute and follows visual cuing. ADL-Treatment Therapy Code Descriptions/Definitions Functional [place] Measure: 0=Not Assessed/NA 4=Minimal Assistance 1=Total Assistance 5=Supervision or Setup 2=Maximal Assistance 6=Modified [place] 3=Moderate Assistance 7=Complete [place] Therapy Quality Codes: 6 Independent with activity with or without an assistive device 5 Patient requires set up or clean up by helper. Patient completes activity by themselves 4 Supervision or touching assist (CGA). [place] provide cues , steadying assist 3 The helper provides less than half the effort to complete the activity 2 The helper provides more than half the effort to complete the activity 1 Dependent. The helper does all the effort to complete an activity 7 Patient refused to complete or attempt activity 9 The patient did not perform the activity before the current illness or injury 88 Not attempted due to Medical conditions or safety concerns Eating (FIM): 5 OT Short Term Goals Short Term Goals 1=Demonstrate adherence to instructed precautions during ADL tasks. 2=Patient will verbalize/demonstrate understanding of assistive devices/modifications for ADL. 3=Patient will improve strength/tolerance for activity to enable patient to perform ADL's. OT Penitentiary Goals Penitentiary Goals 1=Demonstrate adherence to instructed precautions during ADL tasks. 2=Patient will verbalize/demonstrate understanding of assistive devices/modifications for ADL. 3=Patient will improve strength/tolerance for activity to enable patient to perform ADL's. OT Education/Plan Problem List/Assessment pt perform supine to sit with MOD I and sit to stands MOD I. pt slightly unstead y. PT will address pt mobility. PT agreed. pt presents at baseline as far as OT goes.. [facility] home confirmed pt is at baselines per commination via phone. pt was not on therapy caseload at longterm. OT services not indicate secondary to pt functioning at baseline. Discharge Recommendations Plan/Recommendations: Continue POC Therapy D/C Recommendations: [facility] (TCU/[facility]) Treatment Plan/Plan of Care Treatment,Training & Education: Yes Patient would benefit from OT for education, treatment and training to promote independence in ADL's, mobility, safety and/or upper extremity function for ADL's. Treatment Duration: Oct 07, 2018 Frequency: 1 time per week (eval only) Estimated Hrs Per Day: Other (eval only ) Rehab Potential: Guarded Time/GCodes Start Time: 14:50 Stop Time: 15:00 Billed Treatment Time EVL 10 minutes, 1 unit ROSEMARY NAVARRETE OT Oct 07, 2018 15:12
--- NOTE | 2018-10-07 16:00 | NUR ---
REPORT RECEIVED FROM ALLA DELGADO TO ASSUME NURSING CARE, CALL LIGHT WITHIN REACH, BEDRAILS UP BED ALARM ON, ITCHING RASH IN GROIN, OINTMENT APPLIED, IV SITE WITHOUT REDNESS OR SWELLING
[2018-10-07] MEDS: TRIAMCINOLONE 0.1% CR (KENALOG) 15 GM TUBE TOP SCH (16:02)
[2018-10-07 16:40] VITALS: BP 104/61
[2018-10-07] MEDS: ACETAMINOPHEN 325 MG TABLET PO PRN (16:52)
[2018-10-07] MEDS: ATORVASTATIN 20 MG (LIPITOR) TABLET PO SCH (21:30)
[2018-10-07] MEDS: MEMANTINE 10 MG (NAMENDA) TABLET PO SCH (21:30)
[2018-10-07] MEDS: DONEPEZIL 10 MG (ARICEPT) TAB PO SCH (21:30)
[2018-10-07] MEDS: CALCIUM CARB + VIT D 600 MG (CALCARB + D) TAB PO SCH (21:30)
[2018-10-07] MEDS: ZOLPIDEM 5 MG (AMBIEN) TAB PO SCH (21:31)
[2018-10-08] VITALS: BP 132/71
[2018-10-08] MEDS: NS IV 1000 ML 1,000 ML IV SCH ×2 (01:32→17:16)
[2018-10-08 05:54] LABS: BASOPHILS % (AUTO) 0 % (0-10); EOSINOPHILS % (AUTO) 0 % (0-10); HEMATOCRIT 36 % (40-54); HEMOGLOBIN 11.7 G/DL (13.3-17.7); LYMPHOCYTES # (AUTO) 1.1 X 10^3 (1.0-4.0); LYMPHOCYTES % (AUTO) 11 % (12-44); MEAN CORPUSCULAR HEMOGLOBIN 30 PG (25-34); MEAN CORPUSCULAR HGB CONC 33 G/DL (32-36); MEAN CORPUSCULAR VOLUME 94 FL (80-99); MEAN PLATELET VOLUME 10.5 FL (7.4-10.4); MONOCYTES # (AUTO) 1.7 X 10^3 (0.0-1.0); MONOCYTES % (AUTO) 17 % (0-12); NEUTROPHILS # (AUTO) 7.2 X 10^3 (1.8-7.8); NEUTROPHILS % (AUTO) 72 % (42-75); PLATELET COUNT 131 10^3/uL (130-400); RED CELL DISTRIBUTION WIDTH 14.1 % (10.0-14.5)
[2018-10-08 06:23] LABS: ALANINE AMINOTRANSFERASE 19 U/L (0-55); ALKALINE PHOSPHATASE 74 U/L (40-136); BILIRUBIN,TOTAL 0.6 MG/DL (0.1-1.0); BUN/CREATININE RATIO 18; CALCIUM 8.2 MG/DL (8.5-10.1); CARBON DIOXIDE 21 MMOL/L (21-32); CHLORIDE 110 MMOL/L (98-107); CREATININE SERUM 0.71 MG/DL (0.60-1.30); GFR ESTIMATED > 60; GLUCOSE 102 MG/DL (70-105); POTASSIUM 3.5 MMOL/L (3.6-5.0); SODIUM 141 MMOL/L (135-145); TOTAL PROTEIN 5.8 GM/DL (6.4-8.2)
[2018-10-08] MEDS: KCL 20 MEQ TAB (K-DUR) PO SCH (06:24)
[2018-10-08] MEDS: RT-ALBUTEROL/IPRATROPIUM 3 ML (DUONEB) VIAL INH SCH ×4 (06:44→20:10)
[2018-10-08 08:00] VITALS: BP 103/65
--- NOTE | 2018-10-08 08:15 | Diagnostic Imaging Report ---
INDICATION: Pneumonia. TECHNIQUE: Single view chest at 4:07 AM. CORRELATION STUDY: 10/06/2018 FINDINGS: Heart size enlarged. Mediastinum prominent but likely stable given difference in technique. Scattered pulmonary parenchymal densities overall stable. Continued atelectasis or infiltrate at the right lung base with small right pleural effusion. Slight increasing atelectasis in the left perihilar region. Prominent gas-filled loops of bowel in the upper abdomen. IMPRESSION: 1. Cardiac enlargement with vasculature appearing slightly increased. 2. Areas of infiltrate and/or atelectasis, particularly at lung bases, right greater than left persisting. Dictated by: Dictated on workstation # [id number]
[2018-10-08] MEDS ORDERED: VANCOMYCIN INJECTION 0.1 MG in NS (IVPB) 250 ML IV SCH (08:45)
[2018-10-08] MEDS: LORATADINE (CLARITIN) 10 MG TAB PO SCH (08:50)
[2018-10-08] MEDS: TRIAMCINOLONE 0.1% CR (KENALOG) 15 GM TUBE TOP SCH ×2 (08:50→21:39)
[2018-10-08] MEDS: DOCUSATE SODIUM 100 MG (COLACE) CAP PO SCH (08:50)
[2018-10-08] MEDS: ENOXAPARIN 40 MG/0.4 ML (LOVENOX) SYR SC SCH (08:50)
[2018-10-08] MEDS ORDERED: NON-FORMULARY MEDICATION 1 EA EA (Escitalopram Oxalate 5 MG) PO SCH (09:00)
[2018-10-08] MEDS ORDERED: VANCOMYCIN 1500 MG/NS 500 ML IVPB IV NR ×2 (09:00)
--- NOTE | 2018-10-08 09:12 | NUR ---
Vancomycin - Give loading dose of 1500mg over 2 hours now, then 1250mg every 12 hours. Trough ordered for 10/09 @ 1999.
--- NOTE | 2018-10-08 09:24 | Physical Therapy Daily Note ---
PT Daily Note-Current Subjective Pt. nonverbal, cooperative with tactile and demonstrative cuing as well as verbal. Nursing reports pt has been uncooperative for vitals and had O2 off and just put back on by nursing and now appeared SOB to them. Pain Location: No Pain Reported Appearance pt. laying on right side, gown off except one arm, linen urinated. Mental Status Patient Orientation: MR Attachments: Oxygen, IV Transfers Therapy Code Descriptions/Definitions Functional [place] Measure: 0=Not Assessed/NA 4=Minimal Assistance 1=Total Assistance 5=Supervision or Setup 2=Maximal Assistance 6=Modified [place] 3=Moderate Assistance 7=Complete [place] Therapy Quality Codes: 6 Independent with activity with or without an assistive device 5 Patient requires set up or clean up by helper. Patient completes activity by themselves 4 Supervision or touching assist (CGA). [place] provide cues , steadying assist 3 The helper provides less than half the effort to complete the activity 2 The helper provides more than half the effort to complete the activity 1 Dependent. The helper does all the effort to complete an activity 7 Patient refused to complete or attempt activity 9 The patient did not perform the activity before the current illness or injury 88 Not attempted due to Medical conditions or safety concerns sup to sit mod assist, sit to stand min Weight Bearing Right Lower Extremity: Right Full Weight Bearing Left Lower Extremity: Left Full Weight Bearing patient ambulates Gait Training Gait Assistive Device: FWW side step left and right at bed, this ROAD MENDER limited activity considering nurses re port that they were not sure of o2 sats etc. Pt. did tolerate stance and side step left to right while complete bed change was done by PT tech, partial bath and clean gown, pt. warm to touch and rash noted all over body. Nursing aware of all of the above Exercises pt. uncooperative to participate in therex , resisting etc. Assessment Current Status: Fair Progress PT Short Term Goals Short Term Goals Time Frame: Oct 14, 2018 Transfers (B,C,W/C) (FIM): 5 Gait (FIM): 5 Gait Distance Comment: 150' Gait Level of Assist: 5 Gait Assistive Device: None PT Plan Treatment/Plan Treatment Plan: Continue Plan of Care Treatment Plan: Bed Mobility, Education, Functional Activity [place], Functional Strength, Gait, Safety, Therapeutic Exercise, Transfers Treatment Duration: Oct 14, 2018 Frequency: 6 times per week Estimated Hrs Per Day: .25 hour per day Patient and/or Family Agrees t: Yes Safety Risks/Education Patient Education: Transfer Techniques, Correct Positioning, Safety Issues Teaching Recipient: Patient Teaching Methods: Demonstration Response to Teaching: Unable to Return Demonstration, Unable to Comprehend, Reinforcement Needed Time/GCodes Time In: 855 Time Out: 920 Total Billed Treatment Time: 25 Total Billed Treatment 1,FA25m G Codes Necessary: [place] PTA Oct 08, 2018 09:24
[2018-10-08] MEDS: CEFEPIME INJECTION 2,000 MG in WATER (STERILE) FOR INJECTION 20 ML IV SCH ×2 (09:47→23:48)
[2018-10-08] MEDS: MEMANTINE 10 MG (NAMENDA) TABLET PO SCH ×2 (09:47→21:38)
[2018-10-08] MEDS: ACETAMINOPHEN 325 MG TABLET PO PRN ×3 (10:01→16:02)
--- NOTE | 2018-10-08 11:32 | Progress Note - Hospitalist ---
Subjective HPI/CC On Admission Date Seen by Provider: Oct 08, 2018 Time Seen by Provider: 11:00 Subjective/Events-last exam patient is lying on his right side in position. He arouses to questioning and stimuli but is nonverbal otherwise. Blood cultures are positive for staph. Species and sensitivity pending. Patient started on vancomycin this morning. Focused Exam Lactate Level 10/06/18 19:16: Lactic Acid Level 1.68 Time of Focused Exam: 20:12 Objective Exam Vital Signs Vital Signs Date Time Temp Pulse Resp B/P (MAP) Pulse Ox O2 Delivery O2 Flow Rate FiO2 10/09/18 08:00 99.6 77 22 117/74 (88) 91 Nasal Cannula 2.00 10/07/18 00:15 28 Capillary Refill : Less Than 3 Seconds General Appearance: Chronically ill Respiratory: Chest Non Tender, Normal Breath Sounds, No Accessory Muscle Use, No Respiratory Distress, Rales Cardiovascular: Regular Rate, Rhythm, No Gallop, No Murmur Gastrointestinal: Normal Bowel Sounds, Soft Rectal: Deferred Back: Normal Inspection Extremity: No Pedal Edema Neurologic/Psychiatric: Depressed Affect, Disoriented Skin: Pallor Results/Procedures Lab Laboratory Tests 10/09/18 05:27 Patient resulted labs reviewed. Imaging: Reviewed Imaging Report Assessment/Plan Assessment and Plan Assess & Plan/Chief Complaint 1. Pneumonia possibly secondary to aspiration. Staph organism in blood cultures- on vancomycin and cefepime- 2. septicemia 3. history of hypertension 4. dementia Clinical Quality Measures DVT/VTE Risk/Contraindication: Risk Factor Score Per Nursin RFS Level Per Nursing on Admit: 4+=Very High NADEEN BUTLER MD Oct 08, 2018 11:32
[2018-10-08 15:25] VITALS: BP 110/63
[2018-10-08] MEDS: DONEPEZIL 10 MG (ARICEPT) TAB PO SCH (21:38)
[2018-10-08] MEDS: ZOLPIDEM 5 MG (AMBIEN) TAB PO SCH (21:38)
[2018-10-08] MEDS: ATORVASTATIN 20 MG (LIPITOR) TABLET PO SCH (21:38)
[2018-10-08] MEDS: CALCIUM CARB + VIT D 600 MG (CALCARB + D) TAB PO SCH (21:38)
[2018-10-08] MEDS: VANCOMYCIN 1250 MG/NS 250 ML IVPB IV SCH ×2 (21:39)
[2018-10-09] MEDS: ACETAMINOPHEN 325 MG TABLET PO PRN (00:08)
[2018-10-09 00:20] VITALS: BP 102/68
[2018-10-09 06:04] LABS: BASOPHILS % (AUTO) 0 % (0-10); EOSINOPHILS % (AUTO) 0 % (0-10); HEMATOCRIT 36 % (40-54); HEMOGLOBIN 11.5 G/DL (13.3-17.7); LYMPHOCYTES # (AUTO) 1.1 X 10^3 (1.0-4.0); LYMPHOCYTES % (AUTO) 11 % (12-44); MEAN CORPUSCULAR HEMOGLOBIN 30 PG (25-34); MEAN CORPUSCULAR HGB CONC 32 G/DL (32-36); MEAN CORPUSCULAR VOLUME 93 FL (80-99); MEAN PLATELET VOLUME 10.1 FL (7.4-10.4); MONOCYTES # (AUTO) 1.6 X 10^3 (0.0-1.0); MONOCYTES % (AUTO) 15 % (0-12); NEUTROPHILS # (AUTO) 7.8 X 10^3 (1.8-7.8); NEUTROPHILS % (AUTO) 74 % (42-75); PLATELET COUNT 154 10^3/uL (130-400); RED CELL DISTRIBUTION WIDTH 14.2 % (10.0-14.5); WHITE BLOOD COUNT 10.6 10^3/uL (4.3-11.0)
[2018-10-09 06:33] LABS: ALANINE AMINOTRANSFERASE 20 U/L (0-55); ALBUMIN 2.9 GM/DL (3.2-4.5); ALKALINE PHOSPHATASE 89 U/L (40-136); BILIRUBIN,TOTAL 0.4 MG/DL (0.1-1.0); BUN/CREATININE RATIO 17; CALCIUM 8.4 MG/DL (8.5-10.1); CARBON DIOXIDE 19 MMOL/L (21-32); CHLORIDE 111 MMOL/L (98-107); CREATININE SERUM 0.78 MG/DL (0.60-1.30); GFR ESTIMATED > 60; GLUCOSE 116 MG/DL (70-105); POTASSIUM 3.4 MMOL/L (3.6-5.0); SODIUM 141 MMOL/L (135-145); TOTAL PROTEIN 6.1 GM/DL (6.4-8.2)
[2018-10-09] MEDS: RT-ALBUTEROL/IPRATROPIUM 3 ML (DUONEB) VIAL INH SCH ×4 (06:36→19:20)
[2018-10-09 06:40] VITALS: BP 102/68
[2018-10-09] MEDS: KCL 20 MEQ TAB (K-DUR) PO SCH (06:50)
[2018-10-09 08:00] VITALS: BP 117/74
[2018-10-09] MEDS: ENOXAPARIN 40 MG/0.4 ML (LOVENOX) SYR SC SCH (08:19)
[2018-10-09] MEDS: DOCUSATE SODIUM 100 MG (COLACE) CAP PO SCH (08:20)
[2018-10-09] MEDS: MEMANTINE 10 MG (NAMENDA) TABLET PO SCH ×2 (08:21→22:27)
[2018-10-09] MEDS: LORATADINE (CLARITIN) 10 MG TAB PO SCH (08:21)
[2018-10-09] MEDS: TRIAMCINOLONE 0.1% CR (KENALOG) 15 GM TUBE TOP SCH ×2 (08:21→22:36)
[2018-10-09] MEDS: VANCOMYCIN 1250 MG/NS 250 ML IVPB IV SCH ×4 (08:27→22:27)
[2018-10-09] MEDS: NS IV 1000 ML 1,000 ML IV SCH (08:27)
[2018-10-09] MEDS: CEFEPIME INJECTION 2,000 MG in WATER (STERILE) FOR INJECTION 20 ML IV SCH ×2 (10:16→23:18)
--- NOTE | 2018-10-09 10:26 | Progress Note - Hospitalist ---
Subjective HPI/CC On Admission Date Seen by Provider: Oct 09, 2018 Time Seen by Provider: 10:00 Subjective/Events-last exam patient is much more awake today. Complains of being hungry. He is nonverbal. he is not wearing his oxygen, and seems comfortable Focused Exam Lactate Level 10/06/18 19:16: Lactic Acid Level 1.68 Time of Focused Exam: 20:12 Objective Exam Vital Signs Vital Signs Date Time Temp Pulse Resp B/P (MAP) Pulse Ox O2 Delivery O2 Flow Rate FiO2 10/09/18 08:00 99.6 77 22 117/74 (88) 91 Nasal Cannula 2.00 10/07/18 00:15 28 Capillary Refill : Less Than 3 Seconds General Appearance: Chronically ill HEENT: Other Neck: Limited Range of Motion Respiratory: Lungs Clear, Normal Breath Sounds, No Accessory Muscle Use, No Respiratory Distress Cardiovascular: Regular Rate, Rhythm, No Edema, No Gallop, No JVD, Normal Peripheral Pulses Gastrointestinal: Normal Bowel Sounds, Distended Extremity: Other Neurologic/Psychiatric: Alert, Aphasia Skin: Pallor Results/Procedures Lab Laboratory Tests 10/09/18 05:27 Patient resulted labs reviewed. Imaging: Reviewed Imaging Report Assessment/Plan Assessment and Plan Assess & Plan/Chief Complaint 1. Pneumonia possibly secondary to aspiration. Staph organism in blood cultures- on vancomycin and cefepime-sensitivities pending 2. septicemia 3. history of hypertension 4. dementia 5. evidence of fluid overload on chest x-ray will Hep-Lock IV fluids as it seems the patient is eating and drinking more Clinical Quality Measures DVT/VTE Risk/Contraindication: Risk Factor Score Per Nursin RFS Level Per Nursing on Admit: 4+=Very High NADEEN BUTLER MD Oct 09, 2018 10:25
[2018-10-09 16:20] VITALS: BP 108/83
[2018-10-09] MEDS ORDERED: TROUGH ORDER-PHARMACY XX NR (20:00)
[2018-10-09] MEDS: DONEPEZIL 10 MG (ARICEPT) TAB PO SCH (22:27)
[2018-10-09] MEDS: CALCIUM CARB + VIT D 600 MG (CALCARB + D) TAB PO SCH (22:27)
[2018-10-09] MEDS: ATORVASTATIN 20 MG (LIPITOR) TABLET PO SCH (22:27)
[2018-10-09] MEDS: ZOLPIDEM 5 MG (AMBIEN) TAB PO SCH (22:27)
[2018-10-10] VITALS: BP 122/73
[2018-10-10 05:30] LABS: BASOPHILS % (AUTO) 0 % (0-10); EOSINOPHILS # (AUTO) 0.3 10^3/uL (0.0-0.3); EOSINOPHILS % (AUTO) 3 % (0-10); HEMATOCRIT 35 % (40-54); HEMOGLOBIN 11.6 G/DL (13.3-17.7); LYMPHOCYTES # (AUTO) 1.5 X 10^3 (1.0-4.0); LYMPHOCYTES % (AUTO) 15 % (12-44); MEAN CORPUSCULAR HEMOGLOBIN 30 PG (25-34); MEAN CORPUSCULAR HGB CONC 33 G/DL (32-36); MEAN CORPUSCULAR VOLUME 93 FL (80-99); MONOCYTES # (AUTO) 1.3 X 10^3 (0.0-1.0); MONOCYTES % (AUTO) 13 % (0-12); NEUTROPHILS # (AUTO) 6.8 X 10^3 (1.8-7.8); NEUTROPHILS % (AUTO) 69 % (42-75); PLATELET COUNT 183 10^3/uL (130-400); RED CELL DISTRIBUTION WIDTH 14.3 % (10.0-14.5); WHITE BLOOD COUNT 9.9 10^3/uL (4.3-11.0)
[2018-10-10 05:53] LABS: ALANINE AMINOTRANSFERASE 25 U/L (0-55); ALBUMIN 2.8 GM/DL (3.2-4.5); ALKALINE PHOSPHATASE 88 U/L (40-136); BILIRUBIN,TOTAL 0.4 MG/DL (0.1-1.0); BUN/CREATININE RATIO 18; CALCIUM 8.5 MG/DL (8.5-10.1); CARBON DIOXIDE 25 MMOL/L (21-32); CHLORIDE 109 MMOL/L (98-107); CREATININE SERUM 0.77 MG/DL (0.60-1.30); GFR ESTIMATED > 60; GLUCOSE 111 MG/DL (70-105); POTASSIUM 3.4 MMOL/L (3.6-5.0); SODIUM 143 MMOL/L (135-145); TOTAL PROTEIN 5.9 GM/DL (6.4-8.2)
[2018-10-10] MEDS: KCL 20 MEQ TAB (K-DUR) PO SCH (06:27)
[2018-10-10] MEDS: RT-ALBUTEROL/IPRATROPIUM 3 ML (DUONEB) VIAL INH SCH ×4 (06:47→19:05)
[2018-10-10 08:00] VITALS: BP 143/69
--- NOTE | 2018-10-10 08:00 | Progress Note ---
Subjective Time Seen by a Provider: 07:57 Subjective/Events-last exam Dementia. Patient not talking. Blood cultures staph aureus waiting for sensitivity. Urine culture negative. History of hypertension Focused Exam Time of Focused Exam: 20:12 Objective Exam Vital Signs Date Time Temp Pulse Resp B/P (MAP) Pulse Ox O2 Delivery O2 Flow Rate FiO2 10/10/18 06:47 93 Nasal Cannula 4.00 10/10/18 00:00 99.4 81 30 122/73 (89) 92 Nasal Cannula 2.00 10/09/18 20:00 Nasal Cannula 3.00 10/09/18 19:20 92 Nasal Cannula 4.00 10/09/18 16:20 99.6 86 23 108/83 (91) 91 Nasal Cannula 2.00 10/09/18 14:18 93 Nasal Cannula 3.00 10/09/18 10:28 84 Room Air 10/09/18 08:00 99.6 77 22 117/74 (88) 91 Nasal Cannula 2.00 10/09/18 08:00 Nasal Cannula I & O 10/10/18 07:00 Intake Total 2862 ml Balance 2862 ml Capillary Refill : Less Than 3 Seconds General Appearance: No Apparent Distress, WD/WN HEENT: Normal ENT Inspection Neck: Full Range of Motion, Normal Inspection Respiratory: Lungs Clear, No Accessory Muscle Use, No Respiratory Distress Cardiovascular: Regular Rate, Rhythm, No Murmur Gastrointestinal: non tender, soft Results Lab Laboratory Tests 10/10/18 04:05 10/10/18 04:45 Laboratory Tests 10/09/18 20:10: Vancomycin Level Trough 8.0L 10/10/18 04:05: White Blood Count 9.9, Red Blood Count 3.81L, Hemoglobin 11.6L, Hematocrit 35L, Mean Corpuscular Volume 93, Mean Corpuscular Hemoglobin 30, Mean Corpuscular Hemoglobin Concent 33, Red Cell Distribution Width 14.3, Platelet Count 183, Mean Platelet Volume 10.0, Neutrophils (%) (Auto) 69, Lymphocytes (%) (Auto) 15, Monocytes (%) (Auto) 13H, Eosinophils (%) (Auto) 3, Basophils (%) (Auto) 0, Neutrophils # (Auto) 6.8, Lymphocytes # (Auto) 1.5, Monocytes # (Auto) 1.3H, Eosinophils # (Auto) 0.3, Basophils # (Auto) 0.0 10/10/18 04:45: Sodium Level 143, Potassium Level 3.4L, Chloride Level 109H, Carbon Dioxide Level 25, Anion Gap 9, Blood Urea Nitrogen 14, Creatinine 0.77, Estimat Glomerular Filtration Rate > 60, BUN/Creatinine Ratio 18, Glucose Level 111H, Calcium Level 8.5, Corrected Calcium 9.5, Total Bilirubin 0.4, Aspartate Amino Transf (AST/SGOT) 35H, Alanine Aminotransferase (ALT/SGPT) 25, Alkaline Phosphatase 88, Total Protein 5.9L, Albumin 2.8L Microbiology 10/06/18 Blood Culture - Preliminary, Resulted No growth 10/07/18 Throat Culture - Final, Complete No Beta Strep isolated 10/06/18 Urine Culture - Final, Complete NO GROWTH Assessment/Plan Assessment/Plan Assess & Plan/Chief Complaint Pneumonia. Staph aureus. Dementia. Hypoxic. History of hypertension. Chest x-ray ordered today Clinical Quality Measures Admission Status Admission Dx Pneumonia. Hypoxic. UTI. Dementia. Febrile. Hypoxic. Hypertension. Hyperlipidemia DVT/VTE Risk/Contraindication: Risk Factor Score Per Nursin RFS Level Per Nursing on Admit: 4+=Very High GONZALES YANG DO Oct 10, 2018 08:00
--- NOTE | 2018-10-10 09:23 | Diagnostic Imaging Report ---
INDICATION: Pneumonia. Time of exam 9:06 a.m. COMPARISON: Correlation is made with prior study from 10/08/2018. FINDINGS: The heart is enlarged. The lung volumes are diminished. There continues to be some residual infiltrate or atelectasis in both lung bases. No congestive failure is seen. There is no effusion or pneumothorax. IMPRESSION: Cardiomegaly with residual infiltrates or atelectasis in the bilateral lung bases. Dictated by: Dictated on workstation # [id number]
[2018-10-10] MEDS: ENOXAPARIN 40 MG/0.4 ML (LOVENOX) SYR SC SCH (09:27)
[2018-10-10] MEDS: VANCOMYCIN 1250 MG/NS 250 ML IVPB IV SCH ×4 (09:30→17:33)
[2018-10-10] MEDS: MEMANTINE 10 MG (NAMENDA) TABLET PO SCH ×2 (09:30→21:46)
[2018-10-10] MEDS: TRIAMCINOLONE 0.1% CR (KENALOG) 15 GM TUBE TOP SCH ×2 (09:31→21:48)
[2018-10-10] MEDS: LORATADINE (CLARITIN) 10 MG TAB PO SCH (09:31)
[2018-10-10] MEDS: DOCUSATE SODIUM 100 MG (COLACE) CAP PO SCH (09:31)
[2018-10-10] MEDS: CEFEPIME INJECTION 2,000 MG in WATER (STERILE) FOR INJECTION 20 ML IV SCH ×2 (10:35→21:48)
--- NOTE | 2018-10-10 10:39 | Physical Therapy Progress Note ---
Therapy Progress Note Patient refuses to open his eyes for PT. He remains in the position without O2 in place. RN is aware. PT has attempted x 2. 1 ref x 2 ALEKSANDER BULLOCK PT Oct 10, 2018 10:39
--- NOTE | 2018-10-10 15:40 | NUR ---
CM/SS. Patient has established placement with [facility]. It appears he has Medicare primary, confirmed with SNF he was not under skilled status prior to hospital admission. Patient has dementia with behavior orders, post hospital care plan will be determined based upon patient's PLOF and ability to participate meaningfully with skilled therapies.
[2018-10-10 15:45] VITALS: BP 114/73
[2018-10-10] MEDS: ATORVASTATIN 20 MG (LIPITOR) TABLET PO SCH (21:46)
[2018-10-10] MEDS: ZOLPIDEM 5 MG (AMBIEN) TAB PO SCH (21:47)
[2018-10-10] MEDS: CALCIUM CARB + VIT D 600 MG (CALCARB + D) TAB PO SCH (21:47)
[2018-10-10] MEDS: DONEPEZIL 10 MG (ARICEPT) TAB PO SCH (21:47)
[2018-10-11 00:30] VITALS: BP 139/88
[2018-10-11] MEDS: VANCOMYCIN 1250 MG/NS 250 ML IVPB IV SCH ×2 (00:53)
[2018-10-11] MEDS: KCL 20 MEQ TAB (K-DUR) PO SCH (06:29)
[2018-10-11 07:11] LABS: BASOPHILS % (AUTO) 0 % (0-10); EOSINOPHILS # (AUTO) 0.7 10^3/uL (0.0-0.3); EOSINOPHILS % (AUTO) 7 % (0-10); HEMATOCRIT 38 % (40-54); HEMOGLOBIN 12.3 G/DL (13.3-17.7); LYMPHOCYTES # (AUTO) 1.6 X 10^3 (1.0-4.0); LYMPHOCYTES % (AUTO) 16 % (12-44); MEAN CORPUSCULAR HEMOGLOBIN 30 PG (25-34); MEAN CORPUSCULAR HGB CONC 32 G/DL (32-36); MEAN CORPUSCULAR VOLUME 93 FL (80-99); MEAN PLATELET VOLUME 9.7 FL (7.4-10.4); MONOCYTES # (AUTO) 1.5 X 10^3 (0.0-1.0); MONOCYTES % (AUTO) 15 % (0-12); NEUTROPHILS # (AUTO) 6.3 X 10^3 (1.8-7.8); NEUTROPHILS % (AUTO) 62 % (42-75); PLATELET COUNT 230 10^3/uL (130-400); RED CELL DISTRIBUTION WIDTH 14.5 % (10.0-14.5); WHITE BLOOD COUNT 10.1 10^3/uL (4.3-11.0)
[2018-10-11 07:32] LABS: ALANINE AMINOTRANSFERASE 52 U/L (0-55); ALKALINE PHOSPHATASE 106 U/L (40-136); BILIRUBIN,TOTAL 0.5 MG/DL (0.1-1.0); BUN/CREATININE RATIO 13; CALCIUM 9.1 MG/DL (8.5-10.1); CARBON DIOXIDE 26 MMOL/L (21-32); CHLORIDE 106 MMOL/L (98-107); CREATININE SERUM 0.77 MG/DL (0.60-1.30); GFR ESTIMATED > 60; GLUCOSE 105 MG/DL (70-105); POTASSIUM 3.9 MMOL/L (3.6-5.0); SODIUM 143 MMOL/L (135-145); TOTAL PROTEIN 6.6 GM/DL (6.4-8.2)
[2018-10-11 08:00] VITALS: BP 138/86
[2018-10-11] MEDS ORDERED: TROUGH ORDER-PHARMACY XX NR (08:00)
--- NOTE | 2018-10-11 08:07 | Progress Note ---
Subjective Time Seen by a Provider: 08:05 Subjective/Events-last exam Doing better today. Patient needing. Patient not having any problems breathing. Patient to be sent home on double strength number 10 one twice a day. Patient to be followed up in the office next Wednesday Focused Exam Time of Focused Exam: 20:12 Objective Exam Vital Signs Date Time Temp Pulse Resp B/P (MAP) Pulse Ox O2 Delivery O2 Flow Rate FiO2 10/11/18 00:30 99.0 81 24 139/88 (105) 94 Nasal Cannula 3.00 10/10/18 20:00 Nasal Cannula 3.00 10/10/18 19:06 90 Nasal Cannula 3.00 10/10/18 15:45 100.5 82 22 114/73 (87) 95 Nasal Cannula 3.00 10/10/18 14:50 94 Nasal Cannula 4.00 10/10/18 11:17 89 Nasal Cannula 3.00 I & O 10/11/18 07:00 Intake Total 1720 ml Balance 1720 ml Capillary Refill : Less Than 3 Seconds General Appearance: No Apparent Distress, WD/WN HEENT: Normal ENT Inspection Neck: Full Range of Motion, Normal Inspection Respiratory: Lungs Clear, No Accessory Muscle Use, No Respiratory Distress Cardiovascular: Regular Rate, Rhythm Gastrointestinal: non tender, soft Results Lab Laboratory Tests 10/11/18 06:15 Laboratory Tests 10/11/18 06:15: White Blood Count 10.1, Red Blood Count 4.11L, Hemoglobin 12.3L, Hematocrit 38L, Mean Corpuscular Volume 93, Mean Corpuscular Hemoglobin 30, Mean Corpuscular Hemoglobin Concent 32, Red Cell Distribution Width 14.5, Platelet Count 230, Mean Platelet Volume 9.7, Neutrophils (%) (Auto) 62, Lymphocytes (%) (Auto) 16, Monocytes (%) (Auto) 15H, Eosinophils (%) (Auto) 7, Basophils (%) (Auto) 0, Neutrophils # (Auto) 6.3, Lymphocytes # (Auto) 1.6, Monocytes # (Auto) 1.5H, Eosinophils # (Auto) 0.7H, Basophils # (Auto) 0.0, Sodium Level 143, Potassium Level 3.9, Chloride Level 106, Carbon Dioxide Level 26, Anion Gap 11, Blood Urea Nitrogen 10, Creatinine 0.77, Estimat Glomerular Filtration Rate > 60, BUN/Creatinine Ratio 13, Glucose Level 105, Calcium Level 9.1, Corrected Calcium 9.9, Total Bilirubin 0.5, Aspartate Amino Transf (AST/SGOT) 43H, Alanine Aminotransferase (ALT/SGPT) 52, Alkaline Phosphatase 106, Total Protein 6.6, Albumin 3.0L Microbiology 10/06/18 Blood Culture - Preliminary, Resulted No growth 10/07/18 Throat Culture - Final, Complete No Beta Strep isolated 10/06/18 Urine Culture - Final, Complete NO GROWTH Assessment/Plan Assessment/Plan Assess & Plan/Chief Complaint Pneumonia. Staph aureus. Dementia. Hypoxic. History of hypertension. Chest x-ray ordered today. . 10/11/18. Pneumonia bilateral lung bases. Blood cultures positive for staph aureus. Dementia. Hypoxic. History of hypertension. Patient doing good. Patient to be discharged today and followed up in the office Clinical Quality Measures Admission Status Admission Dx Pneumonia. Hypoxic. UTI. Dementia. Febrile. Hypoxic. Hypertension. Hyperlipidemia DVT/VTE Risk/Contraindication: Risk Factor Score Per Nursin RFS Level Per Nursing on Admit: 4+=Very High GONZALES YANG DO Oct 11, 2018 08:07
[2018-10-11] MEDS ORDERED: SULF1TAB35 PO (08:11)
[2018-10-11] MEDS: RT-ALBUTEROL/IPRATROPIUM 3 ML (DUONEB) VIAL INH SCH ×3 (08:36→15:05)
[2018-10-11] MEDS: LORATADINE (CLARITIN) 10 MG TAB PO SCH (08:46)
[2018-10-11] MEDS: CEFEPIME INJECTION 2,000 MG in WATER (STERILE) FOR INJECTION 20 ML IV SCH (08:46)
[2018-10-11] MEDS: MEMANTINE 10 MG (NAMENDA) TABLET PO SCH (09:38)
--- NOTE | 2018-10-11 13:39 | NUR ---
CM/SS. Patient is discharged and returning to [facility] via their transport scheduled for 1500 this p.m. Physician did not order skilled services, patient returning correction care. Faxed orders to [facility] this a.m., prepared continuum of care packet to accompany patient. Notified daughter Rose by phone. Unit RN aware.
--- NOTE | 2018-10-11 15:06 | NUR ---
Patient's SpO2 86% on room air. SpO2 91% on 3 lpm nasal cannula.
--- NOTE | 2018-10-11 15:19 | NUR ---
REPORT CALLED TO CAPRICE RN AT [facility]. INSTRUCTED NURSE THAT PT. QUALIFIED FOR O2 AT 2 L PER MIN. PER N/C. CAPRICE STATED SHE WAS AWARE OF JOANN'S RASH ALL OVER HIS BODY.
[2018-10-11 15:25] VITALS: BP 138/86
--- NOTE | 2018-10-11 15:30 | NUR ---
[facility] demonstrates understanding of discharge instructions and accurately returns instructions upon questioning. Copy of Post-Discharge Instructions given to [facility] . LAURITA ORTIZ IS able to manage continuing needs after discharge WITH ASSISTANCE OF [facility]. Patients belongings returned to [facility] EMPLOYEE. Patient discharged from [facility] on 10/11/18 at 15:30. LAURITA ORTIZ left floor via W/C, accompanied by STAFF AND FAMILY PER AUTO.
--- NOTE | 2018-10-12 07:43 | Discharge Summary ---
Diagnosis/Chief Complaint Date of Admission Oct 06, 2018 at 20:15 Date of Discharge Oct 11, 2018 at 15:30 Discharge Date: Oct 11, 2018 Discharge Time: 07:41 Discharge Diagnosis Pneumonia. Sepsis. Acute respiratory failure. Alzheimer's disease. Dementia. DO NOT RESUSCITATE. Essential hypertension. Major depressive disorder. Diabetes type II. Blood cultures positive for staph aureus. Leukocytosis. Hypokalemia Reason Hospital Visit Stent of a care home. Patient running a temperature. Patient have difficulty in breathing coughing and fever area Patient spent the day in bed is unusual for him. Patient has dementia and not communicating. Patient brought to the emergency room. Chest x-ray shows pneumonia. Patient has UTI. Patient febrile. Patient has leukocytosis. Patient admitted Discharge Summary Discharge Physical Examination Allergies: Coded Allergies: No Known Drug Allergies (Unverified , 03/02/18) Vitals & I&Os Vital Signs Date Time Temp Pulse Resp B/P (MAP) Pulse Ox O2 Delivery O2 Flow Rate FiO2 10/11/18 15:25 91 20 138/86 94 Nasal Cannula 2.00 10/11/18 08:00 98.2 10/07/18 00:15 28 Hospital Course Patient in hospital improved. Patient sent back to care home Labs (last 24 hrs) Laboratory Tests 10/06/18 19:16: White Blood Count 16.3H, Red Blood Count 4.92, Hemoglobin 14.8, Hematocrit 46, Mean Corpuscular Volume 93, Mean Corpuscular Hemoglobin 30, Mean Corpuscular Hemoglobin Concent 32, Red Cell Distribution Width 14.3, Platelet Count 143, Mean Platelet Volume 10.9H, Neutrophils (%) (Auto) 78H, Lymphocytes (%) (Auto) 9L, Monocytes (%) (Auto) 13H, Eosinophils (%) (Auto) 0, Basophils (%) (Auto) 0, Neutrophils # (Auto) 12.7H, Lymphocytes # (Auto) 1.4, Monocytes # (Auto) 2.2H, Eosinophils # (Auto) 0.0, Basophils # (Auto) 0.0, Neutrophils % (Manual) 6, Lymphocytes % (Manual) 17, Band Neutrophils 7, Blood Morphology Comment NORMAL, Prothrombin Time 14.7, INR Comment 1.1, Activated Partial Thromboplast Time 30, Sodium Level 137, Potassium Level 3.9, Chloride Level 102, Carbon Dioxide Level 23, Anion Gap 12, Blood Urea Nitrogen 15, Creatinine 1.02, Estimat Glomerular Filtration Rate > 60, BUN/Creatinine Ratio 15, Glucose Level 265H, Lactic Acid Level 1.68, Calcium Level 9.2, Corrected Calcium 9.3, Total Bilirubin 1.0, Aspartate Amino Transf (AST/SGOT) 10, Alanine Aminotransferase (ALT/SGPT) 13, Alkaline Phosphatase 113, Total Protein 7.1, Albumin 3.9, Smear Scan 70 10/06/18 19:55: Blood Gas Puncture Site RIGHT RADIAL, Blood Gas Patient Temperature 102.1, Arterial Blood pH 7.42, Arterial Blood Partial Pressure CO2 34L, Arterial Blood Partial Pressure O2 94H, Arterial Blood HCO3 21L, Arterial Blood Total CO2 22.3, Arterial Blood Oxygen Saturation 96, Arterial Blood Base Excess -2.0, Elijah Test YES-POS, Blood Gas Ventilator Setting NO, Blood Gas Inspired Oxygen ROOM AIR 10/06/18 20:00: Urine Color AMBERH, Urine Clarity CLEAR, Urine pH 5, Urine Specific [place] 1.025H, Urine Protein 3+H, Urine Glucose (UA) 4+H, Urine Ketones 2+H, Urine Nitr ite NEGATIVE, Urine Bilirubin NEGATIVE, Urine Urobilinogen 1, Urine Leukocyte Esterase NEGATIVE, Urine RBC (Auto) 3+H, Urine RBC 5-10H, Urine WBC 0-2, Urine S quamous Epithelial Cells 5-10, Urine Crystals NONE, Urine Bacteria MODERATEH, U rine Casts NONE, Urine Mucus MODERATEH, Urine Culture Indicated CULTURE PENDING 10/06/18 20:15: Lab Scanned Report Referred Lab Report 10/07/18 05:40: White Blood Count 14.3H, Red Blood Count 4.23L, Hemoglobin 12.7L, Hematocrit 40, Mean Corpuscular Volume 94, Mean Corpuscular Hemoglobin 30, Mean Corpuscular Hemoglobin Concent 32, Red Cell Distribution Width 14.4, Platelet Count 138, M alexis Platelet Volume 10.8H, Neutrophils (%) (Auto) 77H, Lymphocytes (%) (Auto) 8L , Monocytes (%) (Auto) 16H, Eosinophils (%) (Auto) 0, Basophils (%) (Auto) 0, Neutrophils # (Auto) 10.9H, Lymphocytes # (Auto) 1.1, Monocytes # (Auto) 2.3H, Eosinophils # (Auto) 0.0, Basophils # (Auto) 0.0, Sodium Level 141, Potassium Level 3.5L, Chloride Level 107, Carbon Dioxide Level 25, Anion Gap 9, Blood Urea Nitrogen 11, Creatinine 0.78, Estimat Glomerular Filtration Rate > 60, BUN/Creatinine Ratio 14, Glucose Level 113H, Calcium Level 8.4L, Corrected Calcium 9.0, Total Bilirubin 1.0, Aspartate Amino Transf (AST/SGOT) 10, Alanine Aminotransferase (ALT/SGPT) 11, Alkaline Phosphatase 87, Total Protein 6.0L, Al bumin 3.3, Anti-Streptolysin O Antibody Titer 15 10/07/18 10:05: Group A Streptococcus Screen NEGATIVE 10/08/18 05:10: White Blood Count 10.0, Red Blood Count 3.85L, Hemoglobin 11.7L, Hematocrit 36L, Mean Corpuscular Volume 94, Mean Corpuscular Hemoglobin 30, Mean Corpuscular Hemoglobin Concent 33, Red Cell Distribution Width 14.1, Platelet Count 131, Mean Platelet Volume 10.5H, Neutrophils (%) (Auto) 72, Lymphocytes (%) (Auto) 11L, Monocytes (%) (Auto) 17H, Eosinophils (%) (Auto) 0, Basophils (%) (Auto) 0, Neutrophils # (Auto) 7.2, Lymphocytes # (Auto) 1.1, Monocytes # (Auto) 1.7H, Eosinophils # (Auto) 0.0, Basophils # (Auto) 0.0, Sodium Level 141, Potassium Level 3.5L, Chloride Level 110H, Carbon Dioxide Level 21, Anion Gap 10, Blood Urea Nitrogen 13, Creatinine 0.71, Estimat Glomerular Filtration Rate > 60, BUN/Creatinine Ratio 18, Glucose Level 102, Calcium Level 8.2L, Corrected Calcium 9.0, Total Bilirubin 0.6, Aspartate Amino Transf (AST/SGOT) 23, Alanine Aminotransferase (ALT/SGPT) 19, Alkaline Phosphatase 74, Total Protein 5.8L, Albumin 3.0L 10/09/18 05:27: White Blood Count 10.6, Red Blood Count 3.88L, Hemoglobin 11.5L, Hematocrit 36L, Mean Corpuscular Volume 93, Mean Corpuscular Hemoglobin 30, Mean Corpuscular Hemoglobin Concent 32, Red Cell Distribution Width 14.2, Platelet Count 154, Mean Platelet Volume 10.1, Neutrophils (%) (Auto) 74, Lymphocytes (%) (Auto) 11L , Monocytes (%) (Auto) 15H, Eosinophils (%) (Auto) 0, Basophils (%) (Auto) 0, Neutrophils # (Auto) 7.8, Lymphocytes # (Auto) 1.1, Monocytes # (Auto) 1.6H, Eosinophils # (Auto) 0.0, Basophils # (Auto) 0.0, Sodium Level 141, Potassium Level 3.4L, Chloride Level 111H, Carbon Dioxide Level 19L, Anion Gap 11, Blood Urea Nitrogen 13, Creatinine 0.78, Estimat Glomerular Filtration Rate > 60, BUN/Creatinine Ratio 17, Glucose Level 116H, Calcium Level 8.4L, Corrected Calcium 9.3, Total Bilirubin 0.4, Aspartate Amino Transf (AST/SGOT) 27, Alanine Aminotransferase (ALT/SGPT) 20, Alkaline Phosphatase 89, Total Protein 6.1L, Albumin 2.9L 10/09/18 20:10: Vancomycin Level Trough 8.0L 10/10/18 04:05: White Blood Count 9.9, Red Blood Count 3.81L, Hemoglobin 11.6L, Hematocrit 35L, Mean Corpuscular Volume 93, Mean Corpuscular Hemoglobin 30, Mean Corpuscular Hemoglobin Concent 33, Red Cell Distribution Width 14.3, Platelet Count 183, Mean Platelet Volume 10.0, Neutrophils (%) (Auto) 69, Lymphocytes (%) (Auto) 15, Monocytes (%) (Auto) 13H, Eosinophils (%) (Auto) 3, Basophils (%) (Auto) 0, Neutrophils # (Auto) 6.8, Lymphocytes # (Auto) 1.5, Monocytes # (Auto) 1.3H, Eosinophils # (Auto) 0.3, Basophils # (Auto) 0.0 10/10/18 04:45: Sodium Level 143, Potassium Level 3.4L, Chloride Level 109H, Carbon Dioxide Level 25, Anion Gap 9, Blood Urea Nitrogen 14, Creatinine 0.77, Estimat Glomerular Filtration Rate > 60, BUN/Creatinine Ratio 18, Glucose Level 111H, Calcium Level 8.5, Corrected Calcium 9.5, Total Bilirubin 0.4, Aspartate Amino Transf (AST/SGOT) 35H, Alanine Aminotransferase (ALT/SGPT) 25, Alkaline Phosphatase 88, Total Protein 5.9L, Albumin 2.8L 10/11/18 06:15: White Blood Count 10.1, Red Blood Count 4.11L, Hemoglobin 12.3L, Hematocrit 38L, Mean Corpuscular Volume 93, Mean Corpuscular Hemoglobin 30, Mean Corpuscular Hemoglobin Concent 32, Red Cell Distribution Width 14.5, Platelet Count 230, Mean Platelet Volume 9.7, Neutrophils (%) (Auto) 62, Lymphocytes (%) (Auto) 16, Monocytes (%) (Auto) 15H, Eosinophils (%) (Auto) 7, Basophils (%) (Auto) 0, Neutrophils # (Auto) 6.3, Lymphocytes # (Auto) 1.6, Monocytes # (Auto) 1.5H, Eosinophils # (Auto) 0.7H, Basophils # (Auto) 0.0, Sodium Level 143, Potassium Level 3.9, Chloride Level 106, Carbon Dioxide Level 26, Anion Gap 11, Blood Urea Nitrogen 10, Creatinine 0.77, Estimat Glomerular Filtration Rate > 60, BUN/Creatinine Ratio 13, Glucose Level 105, Calcium Level 9.1, Corrected Calcium 9.9, Total Bilirubin 0.5, Aspartate Amino Transf (AST/SGOT) 43H, Alanine Aminotransferase (ALT/SGPT) 52, Alkaline Phosphatase 106, Total Protein 6.6, Albumin 3.0L Microbiology 10/06/18 Blood Culture - Preliminary, Resulted No growth 10/07/18 Throat Culture - Final, Complete No Beta Strep isolated 10/06/18 Urine Culture - Final, Complete NO GROWTH Laboratory Tests 10/06/18 19:16 10/07/18 05:40 10/08/18 05:10 10/09/18 05:27 10/10/18 04:05 10/10/18 04:45 10/11/18 06:15 Pending Labs Microbiology Date/Time Source Procedure Growth Status 10/06/18 19:40 Peripheral Lt Hand Blood Culture - Preliminary No growth Resulted 10/06/18 19:16 Peripheral Lt Ac Blood Culture - Final Staphylococcus aureus Complete 10/07/18 10:05 Throat Throat Culture - Final No Beta Strep isolated Complete 10/06/18 20:00 Urine Clean Catch Urine Culture - Final NO GROWTH Complete Laboratory Tests 10/06/18 19:16: White Blood Count 16.3, Red Blood Count 4.92, Hemoglobin 14.8, Hematocrit 46, Mean Corpuscular Volume 93, Mean Corpuscular Hemoglobin 30, Mean Corpuscular Hemoglobin Concent 32, Red Cell Distribution Width 14.3, Platelet Count 143, Mean Platelet Volume 10.9, Neutrophils (%) (Auto) 78, Lymphocytes (%) (Auto) 9, Monocytes (%) (Auto) 13, Eosinophils (%) (Auto) 0, Basophils (%) (Auto) 0, Neutrophils # (Auto) 12.7, Lymphocytes # (Auto) 1.4, Monocytes # (Auto) 2.2, Eosinophils # (Auto) 0.0, Basophils # (Auto) 0.0, Neutrophils % (Manual) 6, Lymphocytes % (Manual) 17, Band Neutrophils 7, Blood Morphology Comment NORMAL, Prothrombin Time 14.7, INR Comment 1.1, Activated Partial Thromboplast Time 30, Sodium Level 137, Potassium Level 3.9, Chloride Level 102, Carbon Dioxide Level 23, Anion Gap 12, Blood Urea Nitrogen 15, Creatinine 1.02, Estimat Glomerular Filtration Rate > 60, BUN/Creatinine Ratio 15, Glucose Level 265, Lactic Acid Level 1.68, Calcium Level 9.2, Corrected Calcium 9.3, Total Bilirubin 1.0, Aspartate Amino Transf (AST/SGOT) 10, Alanine Aminotransferase (ALT/SGPT) 13, Alkaline Phosphatase 113, Total Protein 7.1, Albumin 3.9, Smear Scan 70 10/06/18 19:55: Blood Gas Puncture Site RIGHT RADIAL, Blood Gas Patient Temperature 102.1, Arterial Blood pH 7.42, Arterial Blood Partial Pressure CO2 34, Arterial Blood Partial Pressure O2 94, Arterial Blood HCO3 21, Arterial Blood Total CO2 22.3, Arterial Blood Oxygen Saturation 96, Arterial Blood Base Excess -2.0, Elijah Test YES-POS, Blood Gas Ventilator Setting NO, Blood Gas Inspired Oxygen ROOM AIR 10/06/18 20:00: Urine Color FANY, Urine Clarity CLEAR, Urine pH 5, Urine Specific [place] 1.025, Urine Protein 3+, Urine Glucose (UA) 4+, Urine Ketones 2+, Urine Nitrite NEGATIVE, Urine Bilirubin NEGATIVE, Urine Urobilinogen 1, Urine Leukocyte Esterase NEGATIVE, Urine RBC (Auto) 3+, Urine RBC 5-10, Urine WBC 0-2, Urine Squamous Epithelial Cells 5-10, Urine Crystals NONE, Urine Bacteria MODERATE, Urine Casts NONE, Urine Mucus MODERATE, Urine Culture Indicated CULTURE PENDING 10/06/18 20:15: Lab Scanned Report Referred Lab Report 10/07/18 05:40: White Blood Count 14.3, Red Blood Count 4.23, Hemoglobin 12.7, Hematocrit 40, Mean Corpuscular Volume 94, Mean Corpuscular Hemoglobin 30, Mean Corpuscular Hemoglobin Concent 32, Red Cell Distribution Width 14.4, Platelet Count 138, Mean Platelet Volume 10.8, Neutrophils (%) (Auto) 77, Lymphocytes (%) (Auto) 8, Monocytes (%) (Auto) 16, Eosinophils (%) (Auto) 0, Basophils (%) (Auto) 0, Neutrophils # (Auto) 10.9, Lymphocytes # (Auto) 1.1, Monocytes # (Auto) 2.3, Eosinophils # (Auto) 0.0, Basophils # (Auto) 0.0, Sodium Level 141, Potassium Level 3.5, Chloride Level 107, Carbon Dioxide Level 25, Anion Gap 9, Blood Urea Nitrogen 11, Creatinine 0.78, Estimat Glomerular Filtration Rate > 60, BUN/Creatinine Ratio 14, Glucose Level 113, Calcium Level 8.4, Corrected Calcium 9.0, Total Bilirubin 1.0, Aspartate Amino Transf (AST/SGOT) 10, Alanine Aminotransferase (ALT/SGPT) 11, Alkaline Phosphatase 87, Total Protein 6.0, Albumin 3.3, Anti-Streptolysin O Antibody Titer 15 10/07/18 10:05: Group A Streptococcus Screen NEGATIVE 10/08/18 05:10: White Blood Count 10.0, Red Blood Count 3.85, Hemoglobin 11.7, Hematocrit 36, Me an Corpuscular Volume 94, Mean Corpuscular Hemoglobin 30, Mean Corpuscular Hemoglobin Concent 33, Red Cell Distribution Width 14.1, Platelet Count 131, Mean Platelet Volume 10.5, Neutrophils (%) (Auto) 72, Lymphocytes (%) (Auto) 11, Monocytes (%) (Auto) 17, Eosinophils (%) (Auto) 0, Basophils (%) (Auto) 0, Neutrophils # (Auto) 7.2, Lymphocytes # (Auto) 1.1, Monocytes # (Auto) 1.7, Eosinophils # (Auto) 0.0, Basophils # (Auto) 0.0, Sodium Level 141, Potassium Level 3.5, Chloride Level 110, Carbon Dioxide Level 21, Anion Gap 10, Blood Urea Nitrogen 13, Creatinine 0.71, Estimat Glomerular Filtration Rate > 60, BUN/Creatinine Ratio 18, Glucose Level 102, Calcium Level 8.2, Corrected Calcium 9.0, Total Bilirubin 0.6, Aspartate Amino Transf (AST/SGOT) 23, Alanine Aminotransferase (ALT/SGPT) 19, Alkaline Phosphatase 74, Total Protein 5.8, Albumin 3.0 10/09/18 05:27: White Blood Count 10.6, Red Blood Count 3.88, Hemoglobin 11.5, Hematocrit 36, Mean Corpuscular Volume 93, Mean Corpuscular Hemoglobin 30, Mean Corpuscular Hemoglobin Concent 32, Red Cell Distribution Width 14.2, Platelet Count 154, Mean Platelet Volume 10.1, Neutrophils (%) (Auto) 74, Lymphocytes (%) (Auto) 11, Monocytes (%) (Auto) 15, Eosinophils (%) (Auto) 0, Basophils (%) (Auto) 0, Neutrophils # (Auto) 7.8, Lymphocytes # (Auto) 1.1, Monocytes # (Auto) 1.6, Eosinophils # (Auto) 0.0, Basophils # (Auto) 0.0, Sodium Level 141, Potassium Level 3.4, Chloride Level 111, Carbon Dioxide Level 19, Anion Gap 11, Blood Urea Nitrogen 13, Creatinine 0.78, Estimat Glomerular Filtration Rate > 60, BUN/Creatinine Ratio 17, Glucose Level 116, Calcium Level 8.4, Corrected Calcium 9.3, Total Bilirubin 0.4, Aspartate Amino Transf (AST/SGOT) 27, Alanine Aminotransferase (ALT/SGPT) 20, Alkaline Phosphatase 89, Total Protein 6.1, Albumin 2.9 10/09/18 20:10: Vancomycin Level Trough 8.0 10/10/18 04:05: White Blood Count 9.9, Red Blood Count 3.81, Hemoglobin 11.6, Hematocrit 35, Mean Corpuscular Volume 93, Mean Corpuscular Hemoglobin 30, Mean Corpuscular Hemoglobin Concent 33, Red Cell Distribution Width 14.3, Platelet Count 183, Mean Platelet Volume 10.0, Neutrophils (%) (Auto) 69, Lymphocytes (%) (Auto) 15, Monocytes (%) (Auto) 13, Eosinophils (%) (Auto) 3, Basophils (%) (Auto) 0, Neutrophils # (Auto) 6.8, Lymphocytes # (Auto) 1.5, Monocytes # (Auto) 1.3, Eosinophils # (Auto) 0.3, Basophils # (Auto) 0.0 10/10/18 04:45: Sodium Level 143, Potassium Level 3.4, Chloride Level 109, Carbon Dioxide Level 25, Anion Gap 9, Blood Urea Nitrogen 14, Creatinine 0.77, Estimat Glomerular Filtration Rate > 60, BUN/Creatinine Ratio 18, Glucose Level 111, Calcium Level 8.5, Corrected Calcium 9.5, Total Bilirubin 0.4, Aspartate Amino Transf (AST/SGOT) 35, Alanine Aminotransferase (ALT/SGPT) 25, Alkaline Phosphatase 88, Total Protein 5.9, Albumin 2.8 10/11/18 06:15: White Blood Count 10.1, Red Blood Count 4.11, Hemoglobin 12.3, Hematocrit 38, Mean Corpuscular Volume 93, Mean Corpuscular Hemoglobin 30, Mean Corpuscular Hemoglobin Concent 32, Red Cell Distribution Width 14.5, Platelet Count 230, Mean Platelet Volume 9.7, Neutrophils (%) (Auto) 62, Lymphocytes (%) (Auto) 16, Monocytes (%) (Auto) 15, Eosinophils (%) (Auto) 7, Basophils (%) (Auto) 0, Neutrophils # (Auto) 6.3, Lymphocytes # (Auto) 1.6, Monocytes # (Auto) 1.5, Eos inophils # (Auto) 0.7, Basophils # (Auto) 0.0, Sodium Level 143, Potassium Level 3.9, Chloride Level 106, Carbon Dioxide Level 26, Anion Gap 11, Blood Urea Nitrogen 10, Creatinine 0.77, Estimat Glomerular Filtration Rate > 60, BUN/Creatinine Ratio 13, Glucose Level 105, Calcium Level 9.1, Corrected Calcium 9.9, Total Bilirubin 0.5, Aspartate Amino Transf (AST/SGOT) 43, Alanine Aminotransferase (ALT/SGPT) 52, Alkaline Phosphatase 106, Total Protein 6.6, Albumin 3.0 Discharge Home Medications: Active Scripts Active Bactrim Ds Tablet (Sulfamethoxazole/Trimethoprim) 1 Each Tablet 1 Each PO BID 5 Days Reported Zyrtec (Cetirizine HCl) 10 Mg Tablet 10 Mg PO HS Tylenol (Acetaminophen) 325 Mg Tablet 650 Mg PO Q4H PRN Triamcinolone Acetonide 0.1% Cream (Triamcinolone Acet) 15 Gm Cr TOP BID Potassium Chloride 20 Meq/15 Ml Liquid 20 Meq PO DAILY Memantine HCl ER (Memantine HCl) 28 Mg Cap.spr.24 28 Mg PO DAILY Multivitamins (Multivitamin) 1 Each Tablet 1 Tab PO DAILY Milk of Magnesia (Magnesium Hydroxide) 400 Mg/5 Ml Oral.susp 30 Ml PO DAILY PRN Maalox Advanced Suspension (Mag Hydrox/Aluminum Hyd/Simeth) 355 Ml Oral.susp 30 Ml PO Q4H PRN Atorvastatin Calcium 20 Mg Tablet 20 Mg PO HS Escitalopram Oxalate 5 Mg Tablet 5 Mg PO DAILY Hydrocortisone 28.35 Gm Cream..g. TP Q12H PRN Guaifenesin Dm Syrup (Guaifenesin/Dextromethorphan) 5 Ml Syrup 10 Ml PO Q6H PRN Eucerin Creme (Lanolin Alcohol/Mo/W.pet/[place]) 454 Gm Cream..g. TP UD APPLY TWICE DAILY EVERY MON, TUE, WED, THURS, FRI FOR RASH Mupirocin 22 Gm Oint...g. TP BID APPLY TO BEHIND RIGHT EAR EVERY SHIFT FOR SCRATCHED AREA, CLEANSE AREA APPLY OINTMENT AND COVER WITH GAUZE. Donepezil HCl 10 Mg Tablet 10 Mg PO HS Zolpidem Tartrate 5 Mg Tablet 2.5 Mg PO HS TAKES 1/2 (5MG) TABLET Calcium 600 + Vit D 400 Tablet (Calcium Carbonate/Vitamin D3) 1 Each Tablet 1 Tab PO HS Colace (Docusate Sodium) 100 Mg Capsule 100 Mg PO DAILY Instructions to patient/family Please see electronic discharge instructions given to patient. Clinical Quality Measures DVT/VTE Risk/Contraindication: Risk Factor Score Per Nursin RFS Level Per Nursing on Admit: 4+=Very High GONZALES YANG DO Oct 12, 2018 07:43
[2018-10-17] MEDS ORDERED: CEFEPIME INJECTION 2,000 MG in WATER (STERILE) FOR INJECTION 20 ML IV SCH (07:00)
== END 2018-10-11 15:30 | DRG 871 ==
LOC: EDUNIT# 19:08 → ER 19:09 → 4TH 20:15
PROVIDERS: ADMIT Family Medicine; ATTEND Family Medicine
DX: A41.01 Sepsis due to Methicillin susceptible Staphylococcus aureus (principal); J18.1 Lobar pneumonia, unspecified organism; N39.0 Urinary tract infection, site not specified; J96.00 Acute respiratory failure, unspecified whether with hypoxia or hypercapnia; G30.9 Alzheimer's disease, unspecified; F02.81 Dementia in other diseases classified elsewhere, unspecified severity, with behavioral disturbance; E11.9 Type 2 diabetes mellitus without complications; B86 Scabies; Z66 Do not resuscitate; I10 Essential (primary) hypertension; E78.00 Pure hypercholesterolemia, unspecified; K59.09 Other constipation; R27.9 Unspecified lack of coordination; R13.10 Dysphagia, unspecified; G47.9 Sleep disorder, unspecified; F32.9 Major depressive disorder, single episode, unspecified; E87.6 Hypokalemia; Z87.898 Personal history of other specified conditions
CPT/HCPCS: 36415; 36600; 71045; 80053; 80202; 81000; 82805; 83605; 85007; 85025; 85027; 85610; 85730; 86060; 87040; 87088; 87186; 87430; 94640; 94760; 94761

== ENCOUNTER 2019-12-28 14:06 | Emergency (ER) | payer MEDICARE, MEDICAID ==
[~2019-12-28] VITALS: Ht 177.8 cm; Wt 79.3 kg
[~2019-12-28 14:06] MED LIST changes: +ACET325T38 PO; +ATOR20TA66 PO; +CALC-664 PO; +CETI10TA49 PO; +DONE10TA41 PO; +ESCI5TAB12 PO; -GUAI400T71 PO; +GUAI400T86 PO; +GUAI5SYR PO; +HYDR28.3 TP; +LANO454C3 TP; +MAG355OR16 PO; +MAGN400O7 PO; +MEMA28CA5 PO; +MULT-567 PO; +MUPI22OI2 TP; +POTA20LI3 PO; +SULF1TAB35 PO; +TR1C15 TOP; +ZOLP5TAB7 PO
--- NOTE | 2019-12-28 14:14 | ED Fall/Injury ---
General Stated Complaint: FALL Source: patient Exam Limitations: no limitations History of Present Illness Date Seen by Provider: Dec 28, 2019 Time Seen by Provider: 14:11 Initial Comments To ER by EMS from [facility] with reports of a fall while running down the hallway. He had no loss of consciousness but has a laceration just over the top lip. Occurred: this evening Severity: moderate Loss of Consciousness: no loss of consciousness Associated Symptoms (Fall): Denies Symptoms Allergies and Home Medications Allergies Coded Allergies: No Known Drug Allergies (Unverified , 03/02/18) Home Medications Acetaminophen 325 Mg Tablet, 650 MG PO Q4H PRN for PAIN-MILD OR TEMPATURE, (Reported) Atorvastatin Calcium 20 Mg Tablet, 20 MG PO HS, (Reported) Calcium Carbonate/Vitamin D3 1 Each Tablet, 1 TAB PO HS, (Reported) Cetirizine HCl 10 Mg Tablet, 10 MG PO HS, (Reported) Docusate Sodium 100 Mg Capsule, 100 MG PO DAILY, (Reported) Donepezil HCl 10 Mg Tablet, 10 MG PO HS, (Reported) Escitalopram Oxalate 5 Mg Tablet, 5 MG PO DAILY, (Reported) Guaifenesin/Dextromethorphan 5 Ml Syrup, 10 ML PO Q6H PRN for COUGH, (Reported) Hydrocortisone 28.35 Gm Cream..g., TP Q12H PRN for ITCHING/IRRITAION, (Reported) Lanolin Alcohol/Mo/W.pet/[place] 454 Gm Cream..g., TP UD, (Reported) APPLY TWICE DAILY EVERY MON, TUE, WED, THURS, FRI FOR RASH Mag Hydrox/Aluminum Hyd/Simeth 355 Ml Oral.susp, 30 ML PO Q4H PRN for HEARTBURN, (Reported) Magnesium Hydroxide 400 Mg/5 Ml Oral.susp, 30 ML PO DAILY PRN for CONSTIPATION- 7TH LINE, (Reported) Memantine HCl 28 Mg Cap.spr.24, 28 MG PO DAILY, (Reported) Multivitamin 1 Each Tablet, 1 TAB PO DAILY, (Reported) Mupirocin 22 Gm Oint...g., TP BID, (Reported) APPLY TO BEHIND RIGHT EAR EVERY SHIFT FOR SCRATCHED AREA, CLEANSE AREA APPLY OINTMENT AND COVER WITH GAUZE. Potassium Chloride 20 Meq/15 Ml Liquid, 20 MEQ PO DAILY, (Reported) Sulfamethoxazole/Trimethoprim 1 Each Tablet, 1 EACH PO BID Prescribed by: JUAN BARBOSA on 10/11/18 0811 Triamcinolone Acet 15 Gm Cr, TOP BID, (Reported) Zolpidem Tartrate 5 Mg Tablet, 2.5 MG PO HS, (Reported) TAKES 1/2 (5MG) TABLET Patient Home Medication List Home Medication List Reviewed: Yes Review of Systems Review of Systems Constitutional: see HPI, other (Unable to obtain as patient has a history of dementia and aphasia) Past [id number] Hx Patient Social History 2nd Hand Smoke Exposure: No Recent Foreign Travel: No Contact w/Someone Who Travel: No Recent Hopitalizations: No Immunizations Up To Date Date of Pneumonia Vaccine: Apr 22, 2017 Seasonal Allergies Seasonal Allergies: No Past Medical History Cardiac: Yes High Cholesterol, Hypertension Neurological: Yes (anoxic brain damage) Dementia Genitourinary: No Gastrointestinal: Yes Chronic Constipation Musculoskeletal: Yes (lack of cordination) Endocrine: Yes Diabetes, Non-Insulin dep HEENT: Yes Dysphagia Cancer: No Psychosocial: Yes (behavioral disorders, ) Sleep Difficulties, Depression Integumentary: Yes (multiple "all over" rash noted to skin) Recent Skin Changes Family Medical History History per records as patient unable to give history. Physical Exam Vital Signs Capillary Refill : Height, Weight, BMI Height: 6'0.00" Weight: 160lbs. 6.4oz. [id number]; 21.8 BMI Method:Estimated General Appearance: WD/WN, no apparent distress HEENT: PERRL/EOMI, normal ENT inspection, other (there is a 1 cm horizontal laceration to the top lip that is not through and through it is superficial in nature just superior to the vermilion border with no active bleeding and does not require primary closure) Neck: non-tender, full range of motion Respiratory: no respiratory distress, no accessory muscle use Gastrointestinal: normal bowel sounds, non tender, soft Extremities: normal range of motion, non-tender Neurologic/Psychiatric: alert, normal mood/affect Skin: normal color, warm/dry [place] Coma Score Best Eye Response: (4) Open Spontaneously Best Motor Response: (6) Obeys Commands Procedures/Interventions Suture Size: 5-0 Progress/Results/Core Measures Results/Orders My Orders Orders - BARBARA SABILLON APRN Ct Head/Cervical Spine Wo (12/28/19 14:10) Departure Impression Primary Impression: Fall Qualified Codes: W19.XXXA - Unspecified fall, initial encounter Additional Impression: Lip laceration Qualified Codes: S01.511A - Laceration without foreign body of lip, initial encounter Disposition: 01 HOME, SELF-CARE Condition: Stable Departure-Patient Inst. Decision time for Depature: 14:15 Referrals: GONZALES YANG DO (PCP/Family) Primary Care Physician Patient Instructions: Wound Care (DC) Add. Discharge Instructions: 1. Return to ER for any concerns 2. Wash the wound on his upper lip twice daily with soap and water. No need to apply any creams or ointments BARBARA SABILLON CLERICAL ASSIGNER Dec 28, 2019 14:14
--- NOTE | 2019-12-28 14:51 | Diagnostic Imaging Report ---
PROCEDURE: CT head and CT cervical spine without contrast. TECHNIQUE: Multiple contiguous axial images were obtained through the brain and cervical spine without the use of intravenous contrast. Sagittal and coronal reformations through the cervical spine were then performed. Auto Exposure Controls were utilized during the CT exam to meet ALARA standards for radiation dose reduction. INDICATION: Fell, head and neck pain CT HEAD: There is no mass, shift of the midline or hemorrhage to suggest an acute intracranial abnormality. The ventricles are not abnormally dilated, stable in size when compared to the prior exam of 03/02/2018. The cortical atrophy seen on the previous day has not progressed. The bone windows show no evidence for fracture or for destructive lesion. The orbits are symmetrical and within normal limits. The sinuses where visualized are clear. IMPRESSION: 1. There is no evidence for an acute intracranial abnormality. If clinical concern regarding an underlying abnormality persists, MRI would be recommended for further study. CT CERVICAL SPINE The reconstructed parasagittal images again show severe degenerative disc and bone disease at C5-C6 and C6-C7. These findings are similar to the prior exam of 03/02/2018. There is no fracture or acute bony abnormality present. There is no sign of retropharyngeal edema. The lung apices are clear. IMPRESSION: 1. There is no evidence for an acute bony abnormality. 2. These results were discussed with Pablo Mccabe APRN. Dictated by: Dictated on workstation # [id number]
--- NOTE | 2019-12-28 14:51 | NUR ---
Pablo Mccabe spoke to Luci mercado: transportation for pt back to group home.
[2019-12-28] MEDS ORDERED: TETANUS,DIPTH,PERTUSS P/F (BOOSTRIX) 0.5 ML VIAL IM ONE (15:00)
[2019-12-28 15:24] VITALS: BP 111/99
== END 2019-12-28 15:24 | disposition home or self-care (01) ==
LOC: EDUNIT# 14:06 → ER 14:08
DX: S01.511A Laceration without foreign body of lip, initial encounter (principal); E78.00 Pure hypercholesterolemia, unspecified; F03.90 Unspecified dementia, unspecified severity, without behavioral disturbance, psychotic disturbance, mood disturbance, and anxiety; F32.9 Major depressive disorder, single episode, unspecified; Z23 Encounter for immunization; W18.39XA Other fall on same level, initial encounter; Y93.02 Activity, running
CPT/HCPCS: 70450; 72125; 90715

== ENCOUNTER 2022-07-01 08:20 | Emergency (ER) | payer MEDICARE, MEDICAID ==
[~2022-07-01 08:20] MED LIST changes: +CALC-1026 PO; -CALC-664 PO; -ESCI5TAB12 PO; +ESCI5TAB16 PO; +MEMA28CA16 PO; -MEMA28CA5 PO; -SULF1TAB35 PO; +SULF1TAB38 PO
--- NOTE | 2022-07-01 11:26 | Diagnostic Imaging Report ---
Clinical Indication: Patient is status post fall with laceration on the left eye. Exam: Head CT without IV contrast with sagittal and coronal reformations. Axial CT scan of the cervical spine with sagittal and coronal reformations. Auto Exposure Controls were utilized during the CT exam to meet ALARA standards for radiation dose reduction. Comparison: CT scan of the head and cervical spine without contrast dated 12/28/2019. Findings: Head CT: There is no evidence of acute cerebral infarct, intracranial hemorrhage, or gross mass effect. The brain parenchymal volume appears appropriate for patient's age. There is normal luu-white matter distinction. There is no significant midline shift or herniation. There is no evidence of hydrocephalus. The basal cisterns are unremarkable. There is mild soft tissue swelling in the left periorbital region. There is no acute skull fracture. Stable chronic bony deformity of the right and left nasal bone regions. The skull, extracranial soft tissue, and orbits are unremarkable. There is mild mucosal thickening involving ethmoid sinus and both maxillary sinuses. There is small amount of consolidation and sclerosis involving right mastoid air cells. Cervical spine: There is no acute cervical spine fracture or dislocation. There are hypertrophic spurs seen throughout cervical spine most pronounced at C4-C7 levels. There is severe loss of disk space height at the C5-C6 and C6-C7 levels. There is moderate loss of disk space height at the C4-C5 level. There is no significant neck soft tissue abnormality. Impression: 1: There is no evidence of acute intracranial process. There is no intracranial hemorrhage or skull fracture. 2: There is cervical spine degenerative disease with no acute fracture or dislocation. Dictated by: Dictated on workstation # [id number]
[2022-07-01] MEDS ORDERED: L.E.T. SOLUTION 3 ML SYR TOP ONE (11:30)
[2022-07-01] MEDS ORDERED: TETANUS,DIPTH,PERTUSS P/F (BOOSTRIX) 0.5 ML VIAL IM ONE (11:30)
--- NOTE | 2022-07-01 12:02 | ED Head Injury ---
General Chief Complaint: Laceration Stated Complaint: LT EYE LACERATION Source: caregiver Exam Limitations: physical impairment (ANGELINA ROBLERO MD) History of Present Illness Date Seen by Provider: July 01, 2022 Time Seen by Provider: 09:35 Initial Comments Patient here from [facility]-way with report of laceration to the left brow. Apparently he walked into the dining room and was noted to have blood on his face. This was an unwitnessed injury but staff at the half-way believe that he may have actually hit his head with the door. No report of falls or other injury. Bleeding is currently controlled. Occurred: just prior to arrival Severity: mild Location: other (Left brow lateral aspect) Method of Injury: direct blow Loss of Consciousness: no loss of consciousness (ANGELINA ROBLERO MD) Initial Comments Patient was initially seen by me and report was received by his caregivers. Patient is nonverbal and does not follow instructions well. They were concerned about applying the sutures because he would likely pick at them. No other obvious injuries were identified. Patient was ambulatory after the incident. There was no loss of consciousness. (DAI NINO MD) Allergies and Home Medications Allergies Coded Allergies: No Known Drug Allergies (Unverified , 03/02/18) Patient Home Medication List Home Medication List Reviewed: Yes (ANGELINA ROBLERO MD) Acetaminophen (Tylenol) 325 Mg Tablet, 650 MG PO Q4H PRN for PAIN-MILD OR TEMPATURE, (Reported) Entered as Reported by: JOHANNA RICHARD on 10/07/18 1011 Atorvastatin Calcium (Atorvastatin Calcium) 20 Mg Tablet, 20 MG PO HS, (Reported) Entered as Reported by: JOHANNA RICHARD on 10/07/18 1011 Calcium Carbonate/Vitamin D3 (Calcium 600 + Vit D 400 Tablet) 1 Each Tablet, 1 TAB PO HS, (Reported) Entered as Reported by: JOHANNA RICHARD on 10/07/18 1011 Cetirizine HCl (Zyrtec) 10 Mg Tablet, 10 MG PO HS, (Reported) Entered as Reported by: JOHANNA RICHARD on 10/07/18 1011 Docusate Sodium (Colace) 100 Mg Capsule, 100 MG PO DAILY, (Reported) Entered as Reported by: KIKI FORTUNE on 03/02/18 1059 Donepezil HCl (Donepezil HCl) 10 Mg Tablet, 10 MG PO HS, (Reported) Entered as Reported by: JOHANNA RICHARD on 10/07/18 1011 Escitalopram Oxalate (Escitalopram Oxalate) 5 Mg Tablet, 5 MG PO DAILY, (Reported) Entered as Reported by: JOHANNA RICHARD on 10/07/18 101 Guaifenesin/Dextromethorphan (Guaifenesin Dm Syrup) 5 Ml Syrup, 10 ML PO Q6H PRN for COUGH, (Reported) Entered as Reported by: JOHANNA RICHARD on 10/07/18 101 Hydrocortisone (Hydrocortisone) 28.35 Gm Cream..g., TP Q12H PRN for ITCHING/IRRITAION, (Reported) Entered as Reported by: JOHANNA RICHARD on 10/07/18 101 Lanolin Alcohol/Mo/W.pet/Left Hand (Eucerin Creme) 454 Gm Cream..g., TP UD, (Reported) Entered as Reported by: JOHANNA RICHARD on 10/07/18 101 Mag Hydrox/Aluminum Hyd/Simeth (Maalox Advanced Suspension) 355 Ml Oral.susp, 30 ML PO Q4H PRN for HEARTBURN, (Reported) Entered as Reported by: JOHANNA RICHARD on 10/07/18 101 Magnesium Hydroxide (Milk of Magnesia) 400 Mg/5 Ml Oral.susp, 30 ML PO DAILY PRN for CONSTIPATION-7TH LINE, (Reported) Entered as Reported by: JOHANNA RICHARD on 10/07/18 101 Memantine HCl (Memantine HCl ER) 28 Mg Cap.spr.24, 28 MG PO DAILY, (Reported) Entered as Reported by: JOHANNA RICHARD on 10/07/18 101 Multivitamin (Multivitamins) 1 Each Tablet, 1 TAB PO DAILY, (Reported) Entered as Reported by: JOHANNA RICHARD on 10/07/18 101 Mupirocin (Mupirocin) 22 Gm Oint...g., TP BID, (Reported) Entered as Reported by: JOHANNA RICHARD on 10/07/18 101 Potassium Chloride (Potassium Chloride) 20 Meq/15 Ml Liquid, 20 MEQ PO DAILY, (Reported) Entered as Reported by: JOHANNA RICHARD on 10/07/18 101 Sulfamethoxazole/Trimethoprim (Bactrim Ds Tablet) 1 Each Tablet, 1 EACH PO BID Prescribed by: JUAN BARBOSA on 10/11/18 0811 Triamcinolone Acet (Triamcinolone Acetonide 0.1% Cream) 15 Gm Cr, TOP BID, (Reported) Entered as Reported by: JOHANNA RICHARD on 10/07/18 1011 Zolpidem Tartrate (Zolpidem Tartrate) 5 Mg Tablet, 2.5 MG PO HS, (Reported) Entered as Reported by: JOHANNA RICHARD on 10/07/18 1011 Review of Systems Review of Systems Skin: change in color, lesions Patient has underlying MR and is unable to provide history. No obvious current distress. No report of vomiting or loss of consciousness. (ANGELINA ROBLERO MD) Constitutional: no symptoms reported Eyes: No Symptoms Reported Ears, Nose, Mouth, Throat: see HPI Respiratory: no symptoms reported Cardiovascular: no symptoms reported Gastrointestinal: no symptoms reported Genitourinary: no symptoms reported Musculoskeletal: no symptoms reported Skin: see HPI Psychiatric/Neurological: No Symptoms Reported Endocrine: No Symptoms Reported (DAI NINO MD) Past Ethdcer-Dfzprf-Vnlhht Hx Patient Social History Tobacco Use?: No (ANGELINA ROBLERO MD) Seasonal Allergies Seasonal Allergies: No (ANGELINA ROBLERO MD) Past Medical History Cardiac: Yes High Cholesterol, Hypertension Neurological: Yes (anoxic brain damage) Dementia Genitourinary: No Gastrointestinal: Yes Chronic Constipation Musculoskeletal: Yes (lack of cordination) Endocrine: Yes Diabetes, Non-Insulin dep HEENT: Yes Dysphagia Cancer: No Psychosocial: Yes (behavioral disorders, ) Sleep Difficulties, Depression Integumentary: Yes (multiple "all over" rash noted to skin) Recent Skin Changes (ANGELINA ROBLERO MD) Family Medical History History per records as patient unable to give history. (ANGELINA ROBLERO MD) Physical Exam Vital Signs Vital Signs - First Documented 07/01/22 07/01/22 09:00 12:12 Temp 36.0 Pulse 63 Resp 17 B/P (MAP) 120/69 (86) Pulse Ox 98 O2 Delivery Room Air (DAI NINO MD) Vital Signs Capillary Refill : (ANGELINA ROBLERO MD) Height, Weight, BMI Height: 6'0.00" Weight: 160lbs. 6.4oz. [id number]; 25.00 BMI Method:Estimated (ANGELINA ROBLERO MD) General Appearance: WD/WN, no apparent distress HEENT: PERRL/EOMI, other (2 cm laceration over the left brow into the subcutaneous tissue) Neck: non-tender, normal inspection Cardiovascular: regular rate, rhythm, no edema, no murmur Respiratory: lungs clear, normal breath sounds, no respiratory distress Gastrointestinal: non tender, soft Extremities: non-tender, normal inspection, no pedal edema Psychiatric: other (Alert with cognition at baseline according to staff) Skin: normal color, warm/dry (DAI NINO MD) Radha Coma Score Best Eye Response: (4) Open Spontaneously Best Verbal Response: (5) Oriented (At baseline) Best Motor Response: (6) Obeys Commands (At baseline) (DAI NINO MD) Procedures/Interventions Wound Location: Face Other Wound Location Left brow mid to lateral aspect Wound Length (cm): 2 Wound's Depth, Shape: linear Wound Explored: contaminated Irrigated w/ Saline (ccs): 50 Betadine Prep?: No (Hibiclens) Anesthesia: Lidocaine w/ Epi (Topical) Volume Anesthetic (ccs): 3 Suture Size: 5-0 Other Closure Supply: Wound Adhesive Progress Wound cleaned with Hibiclens and saline and anesthetized with LET. Closure with skin glue with reasonable approximation. Tolerated procedure well with no complications. (ANGELINA ROBLERO MD) Progress/Results/Core Measures Results/Orders My Orders Orders - DAI NINO MD Ct Head/Cervical Spine Wo (07/01/22 ) Let Solution (Let Solution) (07/01/22 11:30) Dipht,Pertuss(Acell),Tet Adult (Boostrix (07/01/22 11:30) (DAI NINO MD) Medications Given in ED Current Medications Medications Dose Ordered Sig/Willie Route Start Time Stop Time Status Last Admin Dose Admin Diphtheria/ Tetanus/Acell Pertussis 0.5 ml ONCE ONCE IM 07/01/22 11:30 07/01/22 11:31 DC 07/01/22 09:55 0.5 ML Tetracaine/ Epinephrine/ Lidocaine 3 ml ONCE ONCE TOP 07/01/22 11:30 07/01/22 11:31 DC 07/01/22 09:55 3 ML (DAI NINO MD) Vital Signs/I&O 07/01/22 07/01/22 09:00 12:12 Temp 36.0 36.1 Pulse 63 60 Resp 17 14 B/P (MAP) 120/69 (86) 122/64 Pulse Ox 98 O2 Delivery Room Air (DAI NINO MD) Progress Progress Note : Progress Note 1155: I have assisted Dr. Nino with the care of this patient. I did review CT scan of the head and C-spine results although was unable to see the actual films due to system being down. No acute findings per radiology results. Patient does have 2 cm laceration left brow in the mid to lateral aspect with bleeding controlled. Patient did have LET applied and bleeding is controlled a nd wound has been cleaned. We will closed wound with skin glue which was done with the assistance of caregiver at bedside. Good closure with reasonable approximation. Tolerated procedure well with no complications. Discharged home with return precautions. Patient caregiver verbalized understanding of instructions and agreement with plan. Patient to return to half-way. (ANGELINA ROBLERO MD) Progress Note : Progress Note After my initial evaluation, CT of the head and C-spine was obtained. Report was reviewed and no serious injuries were identified. Care was then transitioned to Dr. Roblero for approximation of the wound. See his additional notes for details. Tetanus booster was administered. (DAI NINO MD) Diagnostic Imaging Diagonstic Imaging: CT Plain Films/CT/US/NM/MRI: c-spine, head Comments : 1965 PHYSICIAN: DAI NINO MD ADMIT DATE: 07/01/22/ER Draft Date of Exam:07/01/22 CT HEAD/CERVICAL SPINE WO Clinical Indication: Patient is status post fall with laceration on the left eye. Exam: Head CT without IV contrast with sagittal and coronal reformations. Axial CT scan of the cervical spine with sagittal and coronal reformations. Auto Exposure Controls were utilized during the CT exam to meet ALARA standards for radiation dose reduction. Comparison: CT scan of the head and cervical spine without contrast dated 12/28/2019. Findings: Head CT: There is no evidence of acute cerebral infarct, intracranial hemorrhage, or gross mass effect. The brain parenchymal volume appears appropriate for patient's age. There is normal luu-white matter distinction. There is no significant midline shift or herniation. There is no evidence of hydrocephalus. The basal cisterns are unremarkable. There is mild soft tissue swelling in the left periorbital region. There is no acute skull fracture. Stable chronic bony deformity of the right and left nasal bone regions. The skull, extracranial soft tissue, and orbits are unremarkable. There is mild mucosal thickening involving ethmoid sinus and both maxillary sinuses. There is small amount of consolidation and sclerosis involving right mastoid air cells. Cervical spine: There is no acute cervical spine fracture or dislocation. There are hypertrophic spurs seen throughout cervical spine most pronounced at C4-C7 levels. There is severe loss of disk space height at the C5-C6 and C6-C7 levels. There is moderate loss of disk space height at the C4-C5 level. There is no significant neck soft tissue abnormality. Impression: 1: There is no evidence of acute intracranial process. There is no intracranial hemorrhage or skull fracture. 2: There is cervical spine degenerative disease with no acute fracture or dislocation. Dictated on workstation # [id number] Dict: 07/01/22 1116 Trans: 07/01/22 1126 [id number] Interpreted by: DARIUS TOWNSEND MD Electronically signed by: (ANGELINA ROBLERO MD) Departure Impression Primary Impression: Laceration of face Qualified Codes: S01.81XA - Laceration without foreign body of other part of head, initial encounter Disposition: 01 HOME, SELF-CARE Condition: Improved Departure-Patient Inst. Decision time for Depature: 12:00 (ANGELINA ROBLERO MD) Referrals: GONZALES YANG DO (PCP/Family) Primary Care Physician Patient Instructions: Laceration Repair With Glue ED Add. Discharge Instructions: All discharge instructions reviewed with patient and/or family. Voiced understanding. The wound was repaired with skin glue. You may cover this with a dry Band-Aid as needed to prevent picking. This should come off over the next 4 to 7 days. It is okay to wash around wound but do not soak the wound. Return for increased redness, foul-smelling drainage, fever or other concerns as needed. ANGELINA ROBLERO MD July 01, 2022 12:02 DAI NINO MD July 01, 2022 13:00
[2022-07-01 12:12] VITALS: BP 122/64
== END 2022-07-01 12:12 | disposition home or self-care (01) ==
LOC: ER 08:22 → EDUNIT# 10:56 → ER 12:12
DX: S01.112A Laceration without foreign body of left eyelid and periocular area, initial encounter (principal); Z23 Encounter for immunization; W22.8XXA Striking against or struck by other objects, initial encounter; Y93.01 Activity, walking, marching and hiking; Y92.128 Other place in nursing home as the place of occurrence of the external cause
CPT/HCPCS: 12031; 70450; 72125; 90715